=== PATIENT | male | born 1965 | race African-American/Black ===

== ENCOUNTER 2019-04-10 13:01 | Emergency (ER) | payer OTHER ==
[2019-04-10 13:22] VITALS: BP 140/88; PULSE 77; TEMP 98; BMI 24.3
--- NOTE | 2019-04-10 13:34 | PDOC ---
History of Present Illness - General Chief Complaint: Pain, Acute Stated Complaint: ABDOMINAL PAIN Time Seen by Provider: 04/10/19 13:28 History Source: Patient - History of Present Illness Timing/Duration: reports: changing over time Past History - Past Medical History Allergies/Adverse Reactions: Allergies Allergy/AdvReac Type Severity Reaction Status Date / Time No Known Allergies Allergy Verified 04/10/19 13:20 Home Medications: Ambulatory Orders Ondansetron HCl [Zofran] 4 mg PO Q8H #10 tablet 04/10/19 COPD: No Diabetes: Yes - Suicide/Smoking/Psychosocial Hx Smoking History: Never smoked Have you smoked in the past 12 months: No Information on smoking cessation initiated: No Hx Alcohol Use: No Drug/Substance Use Hx: No Review of Systems - Review of Systems Constitutional: No: Chills, Fever, Malaise, Weakness ABD/GI: Yes: Diarrhea, Nausea, Vomiting, Abdominal cramping. No: Blood Streaked Bowels, Constipated, Rectal Bleeding : No: Dysuria, Flank Pain, Hematuria *Physical Exam - Vital Signs Last Vital Signs Temp Pulse Resp BP Pulse Ox 98 F 77 18 140/88 100 04/10/19 13:20 04/10/19 13:20 04/10/19 13:20 04/10/19 13:20 04/10/19 13:20 - Physical Exam General Appearance: Yes: Appropriately Dressed. No: Apparent Distress HEENT: positive: Normal Voice Neck: positive: Supple Respiratory/Chest: negative: Respiratory Distress Gastrointestinal/Abdominal: positive: Soft. negative: Tender Integumentary: positive: Dry, Warm Neurologic: positive: Fully Oriented, Alert, Normal Mood/Affect Medical Decision Making - Medical Decision Making 04/10/19 13:29 53 yo M, h/o NIDDM, here w/ n/v/d. Pt reports intermittent non-bloody, non- bilious vomitus and about 1-2 episodes of non-bloody watery diarrhea 3 days. At some point had vague diffuse abdominal pain that has since resolved. No fever, chills, weakness or dizziness. States overall he feels that symptoms are improving. No sick contacts, recent travel, unusual food or antibiotic use See exam Possible viral gastroenteritis, no RF for serious dysentery, unlikely appy Stable and well hay w/ benign abd Given hx and exam, no w/u warranted at this time -dc w/ supportive tx -reason to return to ED d/w pt *DC/Admit/Observation/Transfer Diagnosis at time of Disposition: Nausea vomiting and diarrhea - Discharge Dispostion Disposition: HOME Condition at time of disposition: Good - Prescriptions Prescriptions: Ondansetron HCl [Zofran] 4 mg PO Q8H #10 tablet - Referrals - Patient Instructions Printed Discharge Instructions: DI for Viral Gastroenteritis -- Adult Additional Instructions: The most common cause of your symptoms is usally viral Please drink plenty of fluids and take anti-nausea medications as needed If symptoms return, please return to the ED - Post Discharge Activity Forms/Work/School Notes: Back to Work
--- NOTE | 2019-04-10 14:04 | PDOC ---
*Physical Exam - Vital Signs Last Vital Signs Temp Pulse Resp BP Pulse Ox 98 F 77 18 140/88 100 04/10/19 13:20 04/10/19 13:20 04/10/19 13:20 04/10/19 13:20 04/10/19 13:20 Medical Decision Making - Medical Decision Making 04/10/19 14:08 53 yo M, h/o NIDDM here w/ n/v/d. Symptoms present for the past 3 days No abdominal pain at this time No fever, chills, weakness or dizziness. Pt seen by Midlevel Provider under my direct supervision I agree with plan as outlined by Midlevel Provider 04/10/19 14:09 *DC/Admit/Observation/Transfer Diagnosis at time of Disposition: Nausea vomiting and diarrhea - Discharge Dispostion Disposition: HOME Condition at time of disposition: Good - Prescriptions Prescriptions: Ondansetron HCl [Zofran] 4 mg PO Q8H #10 tablet - Referrals - Patient Instructions Printed Discharge Instructions: DI for Viral Gastroenteritis -- Adult Additional Instructions: The most common cause of your symptoms is usally viral Please drink plenty of fluids and take anti-nausea medications as needed If symptoms return, please return to the ED - Post Discharge Activity Forms/Work/School Notes: Back to Work
[2019-04-11] MEDS ORDERED: MORPHINE SULFATE 2 MG/ML VIAL ONE (17:46)
[2019-04-12] MEDS ORDERED: INSULIN (NOVOLOG) ASPART 100 UNITS/ML 10ML VIAL ONE (01:06)
[2019-04-14] MEDS ORDERED: PROPOFOL 20 ML ONE ×2 (17:44)
== END 2019-04-10 13:56 | disposition home or self-care (01) ==
LOC: JER 13:01
DX: A08.4 Viral intestinal infection, unspecified (principal); B97.89 Other viral agents as the cause of diseases classified elsewhere
CPT/HCPCS: 99282-25

== ENCOUNTER 2019-04-11 13:27 | Inpatient (IN) | payer OTHER ==
--- NOTE | 2019-04-11 13:34 | PDOC ---
Rapid Medical Evaluation Chief Complaint: Pain Time Seen by Provider: 04/11/19 13:30 Medical Evaluation: Allergies Allergy/AdvReac Type Severity Reaction Status Date / Time No Known Allergies Allergy Verified 04/10/19 13:20 04/11/19 13:30 I have performed a brief in-person evaluation of this patient. The patient presents with a chief complaint of: RLQ/ Mid epigastric pain x 3 days, intermittant now persistant Pertinent physical exam findings: Tight with some guarding, I have ordered the following: Labs / The patient will proceed to the ED for further evaluation.
[2019-04-11 15:11] LABS: BASO % 0.3 % (0-2.0); EOS % 0.2 % (0-4.5); HEMATOCRIT 37.5 % (35.4-49); HEMOGLOBIN 12.8 GM/dL (11.7-16.9); LYMPH % 7.3 % (8-40); MCH 30.9 pg (25.7-33.7); MEAN CELL VOLUME 90.7 fl (80-96); MEAN PLT VOLUME 9.1 fl (7.5-11.1); MONO % 8.2 % (3.8-10.2); PLATELET COUNT 175 K/MM3 (134-434); RBC 4.13 M/mm3 (4.00-5.60); RDW 11.6 % (11.9-15.9); WHITE BLOOD COUNT 8.4 K/mm3 (4.0-10.0)
--- NOTE | 2019-04-11 15:25 | PDOC ---
History of Present Illness - General Chief Complaint: Pain, Acute Stated Complaint: ABD PAIN Time Seen by Provider: 04/11/19 13:30 - History of Present Illness Initial Comments: 04/11/19 15:37 Patient is a 53 year old male presented to the ED with the chief complaint of abdominal pain x 3 days. Patient came here in the ED yesterday for abdominal pain, nausea, vomiting, diarrhea, was diagnosed to have Viral gastroenteritis, was discharged home and now returns back to the ED for worsening Abdominal pain. It is located in the right lower quadrant, 9/10 in intensity, burning/ cramping in nature, non radiating. Since he returned home yesterday, pain has been getting worse, no vomiting or diarrhoea but still has nausea. Denies chest pain, sob, cough, palpitation, headache, loc, dizziness, numbness, tingling or any focal neurological deficits. Bladder habit normal. Sleep/Appetite normal prior to the illness. Past Medical history: DM (diagnosed a mth ago, diet controlled0 Allergies: NKDA Past Surgical history: None Social: Smoking-Denies Alcohol-Denies Drugs-Denies Family hx: Non contributory. Past History - Travel Traveled outside of the country in the last 30 days: Yes Close contact w/someone who was outside of country & ill: No - Past Medical History Allergies/Adverse Reactions: Allergies Allergy/AdvReac Type Severity Reaction Status Date / Time No Known Allergies Allergy Verified 04/10/19 13:20 Home Medications: Ambulatory Orders Ondansetron HCl [Zofran] 4 mg PO Q8H #10 tablet 04/10/19 COPD: No Diabetes: Yes - Immunization History Immunization Up to Date: No - Suicide/Smoking/Psychosocial Hx Smoking History: Never smoked Have you smoked in the past 12 months: No Information on smoking cessation initiated: No Hx Alcohol Use: No Drug/Substance Use Hx: No Review of Systems - Review of Systems Able to Perform ROS?: Yes Is the patient limited Romanian proficient: No *Physical Exam - Vital Signs Last Vital Signs Temp Pulse Resp BP Pulse Ox 98.5 F 79 16 135/86 100 04/11/19 13:31 04/11/19 13:31 04/11/19 13:31 04/11/19 13:31 04/11/19 13:31 - Physical Exam Comments: 04/11/19 15:47 General: Middle aged male, lying in bed, looks uncomfortably, awake, alert, oriented x 3. HEENT: EOM intact, no pallor or icterus. Chest : B/L lungs clear, no added sounds CVS: Regular rate and rhythm, S1, S2, no murmurs Abdomen: Distended, tender to palpation in the RLQ, Tympanic, hypoactive bowel sounds. Ext: No peripheral edema Neuro: Groosly normal. ED Treatment Course - LABORATORY CBC & Chemistry Diagram: 04/15/19 10:50 04/15/19 09:16 - ADDITIONAL ORDERS Additional order review: 04/11/19 14:55 RBC 4.13 MCV 90.7 MCHC 34.0 RDW 11.6 L MPV 9.1 Neutrophils % 84.0 H Lymphocytes % 7.3 L Monocytes % 8.2 Eosinophils % 0.2 Basophils % 0.3 Medical Decision Making - Medical Decision Making 04/11/19 15:48 Patient is a 53 year old male with PMHx of recently dx DM presents with RLQ abdominal pain. Will send CBC, CMP, UA. IV Morphine 2 mg. 04/11/19 15:57 Labs significant for SANTIAGO Creatinine 1.9 (baseline unknown), Lipase 827. Will give 1 L of NS Ultrasound of Abdomen to r/o gall stones. Abdomen/pelvis CT without contrast to r/o SBO. 04/11/19 Signed out to the night resident *DC/Admit/Observation/Transfer Diagnosis at time of Disposition: Abdominal pain in male, SANTIAGO (acute kidney injury), Hydronephrosis - Discharge Dispostion Condition at time of disposition: Stable - Referrals - Patient Instructions - Post Discharge Activity
[2019-04-11 15:39] LABS: ALBUMIN 3.7 g/dl (3.4-5.0); BILIRUBIN,TOTAL 1.4 mg/dL (0.2-1); BLOOD UREA NITROGEN 21.3 mg/dL (7-18); CALCIUM 9.3 mg/dL (8.5-10.1); CREATININE 1.9 mg/dL (0.55-1.3); POTASSIUM 4.6 mmol/L (3.5-5.1); TOT PROT 8.1 g/dl (6.4-8.2)
[2019-04-11] MEDS ORDERED: morphine CARPU-JECT 2 MG/1 ML DISP.SYRIN IVPUSH ONE (15:40)
[2019-04-11] MEDS ORDERED: SODIUM CHLORIDE 500 ML IV STA (15:41)
[2019-04-11] MEDS ORDERED: SODIUM CHLORIDE 1,000 ML IV STA (15:54)
--- NOTE | 2019-04-11 16:33 | PDOC ---
Documentation entered by Alysha Baer SCRIBE, acting as scribe for Kendall Arambula MD. Kendall Arambula MD: This documentation has been prepared by the jolantaibe, Alysha Baer SCRIBE, under my direction and personally reviewed by me in its entirety. I confirm that the documentation accurately reflects all work, treatment, procedures, and medical decision making performed by me. Attending Attestation - Resident Resident Name: LatashaLisa - ED Attending Attestation I have performed the following: I have examined & evaluated the patient, The case was reviewed & discussed with the resident, I agree w/resident's findings & plan, Exceptions are as noted - HPI HPI: 04/11/19 16:03 The patient is a 53-year-old male, with a past medical history of DM (diagnosed 1 month ago, diet-controlled), who presents to the ED with 3 days of abdominal pain. The patient was seen in the ED yesterday for the abdominal pain with associated nausea, vomiting, and diarrhea. He was diagnosed with viral gastroenteritis and discharged but returns today with worsening pain. Vomiting and diarrhea have resolved, but the patient is still nauseous. The patient denies fevers, chills, vomiting, or diarrhea. Denies any chest pain , palpitations or shortness of breath. Denies any weakness, dizziness, or changes in strength or sensation. Allergies: NKDA - Physicial Exam PE: 04/11/19 16:04 GENERAL: Awake, alert, and fully oriented, in no acute distress. HEAD: No signs of trauma EYES: PERRLA, EOMI, sclera anicteric, conjunctiva clear ENT: Auricles normal inspection, hearing grossly normal, nares patent, oropharynx clear without exudates. Moist mucosa NECK: Nontender, no stepoffs, Normal ROM, supple, no lymphadenopathy, JVD, or masses LUNGS: Breath sounds equal, clear to auscultation bilaterally. No wheezes, and no crackles HEART: Regular rate and rhythm, normal S1 and S2, no murmurs, rubs or gallops ABDOMEN: + mild distention, diffusely TTP, No guarding, no rebound. No masses EXTREMITIES: Normal range of motion, no edema. No clubbing or cyanosis. No cords, erythema, or tenderness NEUROLOGICAL: Cranial nerves II through XII intact. 5/5 strength and sensation in all extremities, Normal speech, normal cerebellar function SKIN: Warm, Dry, normal turgor, no rashes or lesions noted. - Medical Decision Making 04/11/19 16:27 53 M with abdominal pain. Labs today notable for elevated lipase as well as Tbili. Exam with distention. - CT to evaluate for obstruction vs ileus - RUQ US to r/o gallstones
--- NOTE | 2019-04-11 19:05 | PDOC ---
*Physical Exam - Vital Signs Last Vital Signs Temp Pulse Resp BP Pulse Ox 98.5 F 79 16 135/86 100 04/11/19 13:31 04/11/19 13:31 04/11/19 13:31 04/11/19 13:31 04/11/19 13:31 ED Treatment Course - LABORATORY CBC & Chemistry Diagram: 04/11/19 14:55 04/11/19 14:55 - ADDITIONAL ORDERS Additional order review: Laboratory Results 04/11/19 14:55 Sodium 129 L Potassium 4.6 Chloride 91 L Carbon Dioxide 31 Anion Gap 7 L BUN 21.3 H Creatinine 1.9 H Est GFR (CKD-EPI)AfAm 45.63 Est GFR (CKD-EPI)NonAf 39.37 Random Glucose 270 H Calcium 9.3 Total Bilirubin 1.4 H AST 15 ALT 18 Alkaline Phosphatase 87 Total Protein 8.1 Albumin 3.7 Lipase 827 H 04/11/19 14:55 RBC 4.13 MCV 90.7 MCHC 34.0 RDW 11.6 L MPV 9.1 Neutrophils % 84.0 H Lymphocytes % 7.3 L Monocytes % 8.2 Eosinophils % 0.2 Basophils % 0.3 - Medications Given in the ED: ED Medications Discontinued Medications Generic Name Dose Route Start Last Admin Trade Name Freq PRN Reason Stop Dose Admin Sodium Chloride 500 mls @ 500 mls/hr 04/11/19 15:41 04/11/19 16:36 Normal Saline - IV 04/11/19 16:40 Not Given ASDIR STA Sodium Chloride 1,000 mls @ 1,000 mls/hr 04/11/19 15:54 04/11/19 16:00 Normal Saline - IV 04/11/19 16:53 1,000 mls/hr ASDIR STA Administration Morphine Sulfate 2 mg 04/11/19 15:40 04/11/19 17:45 Morphine Injection - IVPUSH 04/11/19 15:41 2 mg ONCE ONE Administration Medical Decision Making - Medical Decision Making 04/11/19 19:05 Received sign out from resident Dr. Pagan. In short, pt is a 53 y/o male presenting for diffuse abdominal pain with nausea and vomiting since Tuesday. Newly diagnosed with DM, diet controlled. Was evaluated at this department yesterday and discharged. Returning today for worsening pain. Lipase mildly elevated. Cr suspect to be elevated, but no baseline available. Nonobstructing right hydronephrosis noted on CT and U/S. No radiographic evidence of pancreatitis. Abdominal exam performed. Diffuse tenderness without rebound, guarding, or grimace. Reportedly worse on the right side. Denies h/o of similar pain. Stated he did not want additional pain medication at this time. Endorses taking Vitamin D, B12, C, and unknown testosterone booster; all OTC and not prescribed by physician. Will admit pt for abdominal pain with SANTIAGO and R hydronephrosis without obvious cause in recently diagnosed diabetic. Ordered LF IVFB. In person consultation with resident Dr. Barr. Verbally appraised of the pt s HPI, ED course, and current plan of management. Will admit pt to med/surg for attending Dr. Mcnally. *DC/Admit/Observation/Transfer Diagnosis at time of Disposition: Abdominal pain in male, SANTIAGO (acute kidney injury) Hydronephrosis Qualifiers: Hydronephrosis type: unspecified Qualified Code(s): N13.30 - Unspecified hydronephrosis - Discharge Dispostion Condition at time of disposition: Stable Decision to Admit order: Yes - Referrals - Patient Instructions - Post Discharge Activity
[2019-04-11] MEDS ORDERED: LACTATED RINGERS SOLUTION 1000 ML INFUS.BAG IV ONE (19:38)
--- NOTE | 2019-04-11 20:24 | PN ---
Teaching Attending Note Name of Resident: Cortney Shaw ATTENDING PHYSICIAN STATEMENT I saw and evaluated the patient. I reviewed the resident's note and discussed the case with the resident. I agree with the resident's findings and plan as documented. SUBJECTIVE: Patient is a 53 year old man with a past medical history of NIDDM (diagnosed 1 month ago, diet-controlled), who presents to the ER with 3 days of abdominal pain. The patient was seen in the ER yesterday for the abdominal pain with associated nausea, vomiting, and diarrhea. He was diagnosed with viral gastroenteritis and discharged but returns today with worsening pain. Vomiting and diarrhea have resolved, but the patient is still nauseous. Admits to taking Vitamin D, B12, C, and an unknown testosterone booster - all OTC and not prescribed by a physician. He denies fevers, chills, vomiting, or diarrhea. Denies any chest pain, palpitations or shortness of breath. Denies any weakness, dizziness, or changes in strength or sensation. No sick contacts , recent travel, ingestion of unusual/street food or antibiotic use. OBJECTIVE: Alert Vital Signs Period Temp Pulse Resp BP Sys/Monsivais Pulse Ox Last 24 Hr 98.5 F 79 16 135/86 100 HEENT: No Jaundice, eye redness or discharge, PERRLA, EOMI. Normocephalic, atraumatic. External ears are normal and hearing is grossly intact. No nasal discharge. Neck: Supple, nontender. No palpable adenopathy or thyromegaly. No JVD Chest: Good effort. Clear to auscultation and percussion. Heart: Regular. No S3, rub or murmur Abdomen: Not distended, soft, RLQ tenderness and no HSM. No rebound or guarding. Normal bowel sounds. Ext: Peripheral pulses intact. No leg edema. Skin: Warm and dry. No petechiae, rash or ecchymosis. Neuro: Alert. Oriented x3. CN 2-12 grossly intact. Sensation grossly intact in all four extremities and DTR are symmetric. Psych: Appropriate mood and affect. Good insight. Home Medications Medication Instructions Recorded Ondansetron HCl [Zofran] 4 mg PO Q8H #10 tablet 04/10/19 Abnormal Lab Results 04/11/19 04/11/19 14:55 14:55 RDW 11.6 L Neutrophils % 84.0 H Lymphocytes % 7.3 L Sodium 129 L Chloride 91 L Anion Gap 7 L BUN 21.3 H Creatinine 1.9 H Random Glucose 270 H Total Bilirubin 1.4 H Lipase 827 H ASSESSMENT AND PLAN: 1. Kidney stone disease/?Pancreatitis - CT scan of abdomen and pelvis without contrast shows right moderate hydronephrosis, a non-obstructing kidney stone and nonvisualized appendix. No "pancreatic abnormality" is mentioned. Sonogram does not reveal any biliary system pathology and urinalysis is pending. Hyponatremia likely due to recent volume loss and/or SIADH from nausea. Will keep him NPO, treat with IV LR/IV protonix/IV zofran, trend LFTs and lipase, get urine toxicology, triglycerides, hepatitis serology and consult GI. Consult Urology. Monitor serum sodium q 6 hours. EKG is NSR with no significant ST-T wave changes. Needs outpatient workp to search for stone disease risk factor. Counseled to stop ingesting "a lot" of supplements, vitamins and alternative medicine products. 2. DM Will implement sliding scale insulin regimen and check HbA1c. Consult Endocrine - likely will need drug therapy for NIDDM. Provide comprehensive diabetes care with patient teaching and counseling about the importance of adherence to prescribed diabetes regimen, euglycemia, eye care and foot care. 3. SANTIAGO? - Etiology unclear. Cannot be attributed entirely to the right hydronephrosis. Needs nephrologic workup to rule out an underlying renal disease. Get CPK and urinalysis. Will consult nephrology and avoid nephrotoxic agents such as NSAIDS, aminoglycosides, contrast dyes and certain Alternative medicine products. 4. DVT prophylaxis - SCD. Will hold off on Lovenox 40 mg SQ q 24 hours in case he needs a urologic procedure. 5. Advance directives - Full code
--- NOTE | 2019-04-11 20:50 | HP ---
Admitting History and Physical - Admission Chief Complaint: Abdominal pain x 4 days History of Present Illness: Patient is a 53 year old male presented to the ED with the chief complaint of abdominal pain x 3 days. Patient presented to the ED yesterday for abdominal pain, nausea, vomiting, diarrhea, was diagnosed to have Viral gastroenteritis, was discharged home and now returns back to the ED for worsening Abdominal pain. The pain is located in the right lower quadrant, 9/10 in intensity, burning/cramping in nature, non radiating. Since he returned home yesterday, pain has been getting worse, no vomiting or diarrhea but still has nausea. Pt reports being celibate for past 5years since his divorce. Unsure of hepatitis status. Denies alcohol ingestion. Denies fevers. Pt reports poor appetite, with last meal being Tuesday night. Pt migrated to from [facility] in the s. No prior TB diagnosis. Denies chest pain, sob, cough, palpitation, headache, loc, dizziness, numbness, tingling or any focal neurological deficits. Bladder habit normal. Sleep/Appetite normal prior to the illness. 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 History Source: Patient, Medical Record Limitations to Obtaining History: No Limitations - Past Medical History Endocrine: Yes: Diabetes Mellitus - Smoking History Smoking history: Never smoked Have you smoked in the past 12 months: No - Alcohol/Substance Use Hx Alcohol Use: No Home Medications - Allergies Allergies/Adverse Reactions: Allergies Allergy/AdvReac Type Severity Reaction Status Date / Time No Known Allergies Allergy Verified 04/10/19 13:20 - Home Medications Home Medications: Ambulatory Orders Ondansetron HCl [Zofran] 4 mg PO Q8H #10 tablet 04/10/19 Review of Systems - Review of Systems Constitutional: reports: Loss of Appetite. denies: Chills, Fever, Night Sweats Eyes: denies: Blurred Vision HENT: reports: Nasal Congestion, Throat Pain. denies: Difficult Swallowing, Ear Pain Neck: denies: Stiffness Cardiovascular: denies: Chest Pain, Edema, Palpitations, Shortness of Breath Respiratory: reports: Exercise Intolerance. denies: Cough, Hemoptysis, SOB Gastrointestinal: reports: Abdominal Pain, Diarrhea. denies: Melena Genitourinary: denies: Burning, Dysuria, Flank Pain Musculoskeletal: denies: Back Pain Physical Examination Vital Signs: Vital Signs Temperature 98.5 F 04/11/19 13:31 Pulse Rate 79 04/11/19 13:31 Respiratory Rate 16 04/11/19 13:31 Blood Pressure 135/86 04/11/19 13:31 O2 Sat by Pulse Oximetry (%) 100 04/11/19 13:31 Constitutional: Yes: Mild Distress Eyes: Yes: Conjunctiva Clear, EOM Intact, PERRL. No: Sclera Icterus HENT: Yes: Atraumatic. No: Pharyngeal Erythema Neck: Yes: Supple Cardiovascular: Yes: S1, S2 Respiratory: Yes: CTA Bilaterally Gastrointestinal: Yes: Normal Bowel Sounds, Soft, Tenderness. No: Hematemesis, Palpable Mass, Rectal Bleeding ...Rectal Exam: Yes: Guaiac Negative, Hemorrhoids/External, Sphincter Tone Normal, Other (Gloved finger stained with greenish formed stool). No: Mass Renal/: No: CVA Tenderness - Left, CVA Tenderness - Right Musculoskeletal: No: Back Pain Edema: No Peripheral Pulses WNL: Yes Neurological: Yes: Alert, Oriented, Cran Nerves II-XII Intact. No: Confusion ...Motor Strength: WNL Psychiatric: Yes: Alert, Oriented Labs: CBC, BMP 04/11/19 14:55 04/11/19 14:55 Imaging - Results Cat Scan: Report Reviewed Assessment/Plan Current Medications Acetaminophen (Tylenol -) 650 mg PO Q6H PRN PRN Reason: Fever Or Pain Last Admin: 04/12/19 05:01 Dose: 650 mg Lactated Ringer's (Lactated Ringers Solution) 1,000 mls @ 125 mls/hr IV ASDIR NANCY Last Admin: 04/12/19 00:45 Dose: 125 mls/hr Metronidazole (Flagyl 500mg Premixed Ivpb -) 500 mg in 100 mls @ 100 mls/hr IVPB Q8H-IV NANCY Stop: 04/13/19 04:14 Last Admin: 04/12/19 05:42 Dose: 100 mls/hr Levofloxacin (Levaquin 750 Mg Premixed Ivpb -) 750 mg in 150 mls @ 100 mls/hr IVPB Q48H NANCY; Protocol Insulin Aspart (Novolog Vial Sliding Scale -) 1 vial SQ Q4H NANCY; Protocol Last Admin: 04/12/19 04:58 Dose: 2 unit Ambulatory Orders Ondansetron HCl [Zofran] 4 mg PO Q8H #10 tablet 04/10/19 Assessment/Plan: Patient is a 53 year old male DM hx (not on treatment) presented to the ED with the chief complaint of abdominal pain x 3 days, prior hx of diarrhea, poor PO ingestion found to have SANTIAGO Assessment: Abdominal Pain-Associated n/v with diarrhea prior, Reduced PO intake, when transferred to floor, pt found to be febrile and was started on Ertapenem SANTIAGO Hyponatremia DM with hyperglycemia- pt reported DM control with diet for 5 years, UA pending for ketones, normal anion gap Elevated bilirubin Elevated Lipase 827 R moderate hydronephrosis Non obstructing renal pole calculi Plan: UA LR Utox TG urol consult endocrine consult HgbA1c ISS, BGM LFT Hepatic panel Urol Ertapenem Sepsis work up Dbili Visit type - Emergency Visit Emergency Visit: Yes ED Registration Date: 04/11/19 Care time: The patient presented to the Emergency Department on the above date and was hospitalized for further evaluation of their emergent condition. - New Patient This patient is new to me today: Yes Date on this admission: 04/11/19 - Critical Care Critical Care patient: No
[2019-04-12] MEDS: LACTATED RINGERS SOLUTION 1,000 ML IV SCH ×3 (00:45→23:20)
[2019-04-12] MEDS: INSULIN SLIDING SCALE (NOVOLOG) 1 VIAL SQ SCH ×5 (01:00→21:19)
[2019-04-12 01:50] LABS: BILIRUBIN,DIRECT 0.3 mg/dL (0.0-0.2)
[2019-04-12 01:52] LABS: BILIRUBIN,DIRECT 0.3 mg/dL (0.0-0.2)
[2019-04-12] MEDS ORDERED: SODIUM CHLORIDE 500 ML IV STA (04:14)
[2019-04-12] MEDS: ACETAMINOPHEN 325 MG TABLET (FP) PO PRN ×2 (05:01→20:27)
[2019-04-12 07:46] LABS: BILIRUBIN,TOTAL 1.8 mg/dL (0.2-1); BLOOD UREA NITROGEN 22.6 mg/dL (7-18); CALCIUM 8.6 mg/dL (8.5-10.1); CREATININE 1.6 mg/dL (0.55-1.3); MAGNESIUM 2.3 mg/dL (1.8-2.4); PHOSPHOROUS 3.2 mg/dL (2.5-4.9); POTASSIUM 3.9 mmol/L (3.5-5.1); TOT PROT 6.5 g/dl (6.4-8.2)
[2019-04-12 07:52] LABS: BASO % 0.2 % (0-2.0); HEMATOCRIT 33.4 % (35.4-49); HEMOGLOBIN 11.3 GM/dL (11.7-16.9); LYMPH % 6.6 % (8-40); MCH 30.5 pg (25.7-33.7); MCHC 33.8 g/dl (32.0-35.9); MEAN CELL VOLUME 90.4 fl (80-96); MEAN PLT VOLUME 9.3 fl (7.5-11.1); MONO % 8.3 % (3.8-10.2); NEUT % 84.9 % (42.8-82.8); PLATELET COUNT 165 K/MM3 (134-434); RBC 3.69 M/mm3 (4.00-5.60); RDW 11.7 % (11.9-15.9); WHITE BLOOD COUNT 8.9 K/mm3 (4.0-10.0)
[2019-04-12 08:05] LABS: INR 1.17 (0.83-1.09); PROTHROMBIN TIME (PATIENT) 13.8 SEC (9.7-13.0)
[2019-04-12 08:08] LABS: ACTIVATED PTT 25.7 SECONDS (25.2-36.5)
[2019-04-12 08:16] LABS: EPI CELLS 1.1 /HPF (0-5/HPF); HYALINE CASTS 1 /lpf (0-8); PH,URINE 5.5 (5.0-8.0); URINE APPEARANCE CLEAR; URINE BACTERIA 8.5 /hpf (NEGATIVE); URINE BILIRUBIN NEGATIVE (NEGATIVE); URINE COLOR YELLOW; URINE GLUCOSE (UA) 3+ (NEGATIVE); URINE KETONE 2+ (NEGATIVE); URINE LEUK ESTERASE NEGATIVE (NEGATIVE); URINE NITRITE NEGATIVE (NEGATIVE); URINE PROTEIN 1+ (NEGATIVE); URINE RBC 4 /hpf (0-4); URINE UROBILINOGEN 0.2 mg/dL (0.2-1.0); URINE WBC 3 /hpf (0-5)
[2019-04-12 08:59] LABS: COCAINE, UR NEGATIVE ng/ml (CUTOFF=300); METHADONE, UR NEGATIVE ng/ml (CUTOFF=300); OPIATES, URI NEGATIVE ng/ml (CUTOFF=300); PHENCYCLIDINE,URINE NEGATIVE ng/ml (CUTOFF=25); URINE AMPHETAMINES NEGATIVE ng/ml (CUTOFF=500); URINE BARBITURATES NEGATIVE ng/ml (CUTOFF=200); URINE BENZODIAZEPINES NEGATIVE ng/ml (CUTOFF=200)
[2019-04-12] MEDS ORDERED: ACETAMINOPHEN 1000 MG/100 ML VIAL (NON FORMULARY) IVPB ONE (09:36)
[2019-04-12] MEDS ORDERED: oxyCODONE HCL 5 MG TABLET PO ONE (09:53)
--- NOTE | 2019-04-12 12:10 | PN ---
Physical Exam: SUBJECTIVE: Patient seen and examined at bedside. C/o abdominal pain. No n/v/d. OBJECTIVE: Vital Signs Period Temp Pulse Resp BP Sys/Monsivais Pulse Ox Last 24 Hr 98.2 F-100.6 F 74-97 16-20 110-135/63-90 100-100 GENERAL: A&Ox3, NAD HEENT: NC/AT, PERRLA, EOMI, MMM NECK: Trachea midline, full range of motion, supple. LUNGS: CTA b/l HEART: RRR no m/r/g ABDOMEN: soft, slight distention, reducible periumbilical hernia, tympanic, significant diffuse tenderness R>L EXTREMITIES: 2+ pulses, warm, well-perfused, no edema. NEUROLOGICAL: bee producer, motor, sensory systems w/o focal deficit PSYCH: Normal mood, normal affect. SKIN: Warm, dry, normal turgor, no rashes or lesions noted Laboratory Results - last 24 hr 04/11/19 04/11/19 04/11/19 14:55 14:55 21:56 WBC 8.4 RBC 4.13 Hgb 12.8 Hct 37.5 MCV 90.7 MCH 30.9 MCHC 34.0 RDW 11.6 L Plt Count 175 MPV 9.1 Absolute Neuts (auto) 7.1 Neutrophils % 84.0 H Lymphocytes % 7.3 L Monocytes % 8.2 Eosinophils % 0.2 Basophils % 0.3 Nucleated RBC % 0 PT with INR INR PTT (Actin FS) Sodium 129 L Potassium 4.6 Chloride 91 L Carbon Dioxide 31 Anion Gap 7 L BUN 21.3 H Creatinine 1.9 H Est GFR (CKD-EPI)AfAm 45.63 Est GFR (CKD-EPI)NonAf 39.37 POC Glucometer Random Glucose 270 H Calcium 9.3 Phosphorus Magnesium Total Bilirubin 1.4 H Direct Bilirubin 0.3 H AST 15 ALT 18 Alkaline Phosphatase 87 Total Protein 8.1 Albumin 3.7 Triglycerides Lipase 827 H Urine Color Urine Appearance Urine pH Ur Specific [place] Urine Protein Urine Glucose (UA) Urine Ketones Urine Blood Urine Nitrite Urine Bilirubin Urine Urobilinogen Ur Leukocyte Esterase Urine WBC (Auto) Urine RBC (Auto) Urine Casts (Auto) U Epithel Cells (Auto) Urine Bacteria (Auto) Stool Occult Blood Negative Opiates Screen Methadone Screen Barbiturate Screen Phencyclidine Screen Ur Amphetamines Screen MDMA (Ecstasy) Screen Benzodiazepines Screen Cocaine Screen U Marijuana (THC) Screen HIV 1&2 Antibody Screen HIV P24 Antigen 04/12/19 04/12/19 04/12/19 00:54 01:00 01:00 WBC RBC Hgb Hct MCV MCH MCHC RDW Plt Count MPV Absolute Neuts (auto) Neutrophils % Lymphocytes % Monocytes % Eosinophils % Basophils % Nucleated RBC % PT with INR INR PTT (Actin FS) Sodium Potassium Chloride Carbon Dioxide Anion Gap BUN Creatinine Est GFR (CKD-EPI)AfAm Est GFR (CKD-EPI)NonAf POC Glucometer 200 Random Glucose Calcium Phosphorus Magnesium Total Bilirubin Direct Bilirubin 0.3 H AST ALT Alkaline Phosphatase Total Protein Albumin Triglycerides 98 Lipase Urine Color Urine Appearance Urine pH Ur Specific [place] Urine Protein Urine Glucose (UA) Urine Ketones Urine Blood Urine Nitrite Urine Bilirubin Urine Urobilinogen Ur Leukocyte Esterase Urine WBC (Auto) Urine RBC (Auto) Urine Casts (Auto) U Epithel Cells (Auto) Urine Bacteria (Auto) Stool Occult Blood Opiates Screen Methadone Screen Barbiturate Screen Phencyclidine Screen Ur Amphetamines Screen MDMA (Ecstasy) Screen Benzodiazepines Screen Cocaine Screen U Marijuana (THC) Screen HIV 1&2 Antibody Screen Negative HIV P24 Antigen Negative 04/12/19 04/12/19 04/12/19 04:56 05:30 05:30 WBC RBC Hgb Hct MCV MCH MCHC RDW Plt Count MPV Absolute Neuts (auto) Neutrophils % Lymphocytes % Monocytes % Eosinophils % Basophils % Nucleated RBC % PT with INR INR PTT (Actin FS) Sodium Potassium Chloride Carbon Dioxide Anion Gap BUN Creatinine Est GFR (CKD-EPI)AfAm Est GFR (CKD-EPI)NonAf POC Glucometer 189 Random Glucose Calcium Phosphorus Magnesium Total Bilirubin Direct Bilirubin AST ALT Alkaline Phosphatase Total Protein Albumin Triglycerides Lipase Urine Color Yellow Urine Appearance Clear Urine pH 5.5 Ur Specific [place] 1.032 Urine Protein 1+ H Urine Glucose (UA) 3+ H Urine Ketones 2+ H Urine Blood Negative Urine Nitrite Negative Urine Bilirubin Negative Urine Urobilinogen 0.2 Ur Leukocyte Esterase Negative Urine WBC (Auto) 3 Urine RBC (Auto) 4 Urine Casts (Auto) 1 U Epithel Cells (Auto) 1.1 Urine Bacteria (Auto) 8.5 Stool Occult Blood Opiates Screen Negative Methadone Screen Negative Barbiturate Screen Negative Phencyclidine Screen Negative Ur Amphetamines Screen Negative MDMA (Ecstasy) Screen Negative Benzodiazepines Screen Negative Cocaine Screen Negative U Marijuana (THC) Screen Negative HIV 1&2 Antibody Screen HIV P24 Antigen 04/12/19 04/12/19 04/12/19 06:05 06:05 06:05 WBC 8.9 RBC 3.69 L Hgb 11.3 L Hct 33.4 L MCV 90.4 MCH 30.5 MCHC 33.8 RDW 11.7 L Plt Count 165 MPV 9.3 Absolute Neuts (auto) 7.6 Neutrophils % 84.9 H Lymphocytes % 6.6 L Monocytes % 8.3 Eosinophils % 0.0 D Basophils % 0.2 Nucleated RBC % 0 PT with INR 13.80 H INR 1.17 H PTT (Actin FS) 25.7 Sodium 133 L Potassium 3.9 Chloride 96 L Carbon Dioxide 29 Anion Gap 8 BUN 22.6 H Creatinine 1.6 H Est GFR (CKD-EPI)AfAm 56.17 Est GFR (CKD-EPI)NonAf 48.46 POC Glucometer Random Glucose 153 H Calcium 8.6 Phosphorus 3.2 Magnesium 2.3 Total Bilirubin 1.8 H Direct Bilirubin AST 11 L ALT 16 Alkaline Phosphatase 72 Total Protein 6.5 Albumin 3.0 L Triglycerides Lipase Urine Color Urine Appearance Urine pH Ur Specific [place] Urine Protein Urine Glucose (UA) Urine Ketones Urine Blood Urine Nitrite Urine Bilirubin Urine Urobilinogen Ur Leukocyte Esterase Urine WBC (Auto) Urine RBC (Auto) Urine Casts (Auto) U Epithel Cells (Auto) Urine Bacteria (Auto) Stool Occult Blood Opiates Screen Methadone Screen Barbiturate Screen Phencyclidine Screen Ur Amphetamines Screen MDMA (Ecstasy) Screen Benzodiazepines Screen Cocaine Screen U Marijuana (THC) Screen HIV 1&2 Antibody Screen HIV P24 Antigen 04/12/19 04/12/19 07:07 11:35 WBC RBC Hgb Hct MCV MCH MCHC RDW Plt Count MPV Absolute Neuts (auto) Neutrophils % Lymphocytes % Monocytes % Eosinophils % Basophils % Nucleated RBC % PT with INR INR PTT (Actin FS) Sodium Potassium Chloride Carbon Dioxide Anion Gap BUN Creatinine Est GFR (CKD-EPI)AfAm Est GFR (CKD-EPI)NonAf POC Glucometer 152 145 Random Glucose Calcium Phosphorus Magnesium Total Bilirubin Direct Bilirubin AST ALT Alkaline Phosphatase Total Protein Albumin Triglycerides Lipase Urine Color Urine Appearance Urine pH Ur Specific [place] Urine Protein Urine Glucose (UA) Urine Ketones Urine Blood Urine Nitrite Urine Bilirubin Urine Urobilinogen Ur Leukocyte Esterase Urine WBC (Auto) Urine RBC (Auto) Urine Casts (Auto) U Epithel Cells (Auto) Urine Bacteria (Auto) Stool Occult Blood Opiates Screen Methadone Screen Barbiturate Screen Phencyclidine Screen Ur Amphetamines Screen MDMA (Ecstasy) Screen Benzodiazepines Screen Cocaine Screen U Marijuana (THC) Screen HIV 1&2 Antibody Screen HIV P24 Antigen Active Medications Generic Name Dose Route Start Last Admin Trade Name Freq PRN Reason Stop Dose Admin Acetaminophen 650 mg 04/12/19 04:08 04/12/19 05:01 Tylenol - PO 650 mg Q6H PRN Administration Fever Or Pain Lactated Ringer's 1,000 mls @ 125 mls/hr 04/11/19 23:45 04/12/19 10:19 Lactated Ringers Solution IV 125 mls/hr ASDIR NANCY Administration Insulin Aspart 1 vial 04/12/19 16:30 Novolog Vial Sliding Scale - SQ ACHS NANCY Protocol ASSESSMENT/PLAN: 53 y/o M w/ PMHx recently diagnosed DM not on Tx, p/w abd pain x 3 days #r/o pancreatitis vs hepatobiliary pathology -significant pain/tenderness -lipase elevated but <3x ULN -CT/US did not detect hepatopancreaticobiliary pathology but visualized these structures poorly -T bilirubin 1.4-->1.8 -MRCP ordered -GI consulted -LR @ 125 -NPO pending GI -oxycodone PRN for pain -avoid hepatotoxic medications #SANTIAGO vs CKD -baseline unknown -Cr 1.9-->1.6 -Na 129-->133 -R hydronephrosis on CT a/p and US, no obstructive pathology appreciated -urology consulted -no signs of infection #DM -BGM, SSI -A1c pending #FEN -LR @ 125 -monitor and correct lytes -NPO pending GI #PPx -mechanical #code -full #dispo -med/surg Visit type - Emergency Visit Emergency Visit: No - New Patient This patient is new to me today: Yes Date on this admission: 04/12/19 - Critical Care Critical Care patient: No
--- NOTE | 2019-04-12 12:31 | EKG ---
Test Reason : Blood Pressure : / mmHG Vent. Rate : 081 BPM Atrial Rate : 081 BPM P-R Int : 166 ms QRS Dur : 084 ms QT Int : 354 ms P-R-T Axes : 077 048 027 degrees QTc Int : 411 ms NORMAL SINUS RHYTHM POSSIBLE LEFT ATRIAL ENLARGEMENT BORDERLINE ECG NO PREVIOUS ECGS AVAILABLE Confirmed by KRISTINA WILSON, JANETTE ([id number]) on 04/12/2019 12:31:29 PM Referred By: Confirmed By:JANETTE ACEVEDO MD
--- NOTE | 2019-04-12 12:59 | CON.GI ---
Consult Consult Specialty:: GI Referred by:: Hospitalist Service Reason for Consultation:: Elevated lipase and worsening hyperbilirubinemia - History of Present Illness Chief Complaint: Abdominal pain, vomiting on Tuesday and Tuesday History of Present Illness: 53M admitted through [facility] yesterday for evaluation of abdominal pain. He describes the pain as starting suddenly on Tuesday and became progressively more intense throughout the following days. When asked where the pain is located, He points towards the right paramedian aspect of his abdomen just inferior to the umbilucus He vomited once on tuesday and again on tuesday. He denies simliar episodes in the past. He states that he has been urinating and his last BM was on Tuesday. Pain persists. In the ER he underwent CT scan on admission (non contrast) revealed right sided hydronephrosis as well as right sided renal calculi. No obvious GI pathology was described. Abdominal US failed to reveal gallstones or dilated biliary tract. Lab work revealed leukocytosis, elevated Lipase of 800 and iolated mild elevation of bilirubin (predominantly indirect). He denies alcohol use, use of any prescription medications or use of OTC medications. He denies rectal bleeding, melena or vomiting of blood. He has never had an upper endoscopy or colonoscopy. 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 (year[place] 1989 History of Recent Travel: No Home Medications - Allergies Allergies/Adverse Reactions: Allergies Allergy/AdvReac Type Severity Reaction Status Date / Time No Known Allergies Allergy Verified 04/10/19 13:20 - Home Medications Home Medications: Ambulatory Orders Ondansetron HCl [Zofran] 4 mg PO Q8H #10 tablet 04/10/19 Family Disease History - Family Disease History Family Disease History: Other: Grandparent (Maternal GM w/ BCA), Father (Does not know him), Mother (Alive: Healthy), Brother (2, healthy), Sister (1, healthy ), Son (1, healthy) Other Family History: No family history of colorectal cancer, pancreatitis or other GI malignancy Review of Systems - Review of Systems Constitutional: reports: Loss of Appetite. denies: Chills, Unintentional Wgt. Loss Cardiovascular: denies: Chest Pain Respiratory: denies: Cough Gastrointestinal: reports: Abdominal Pain, Bloating, Vomiting. denies: Diarrhea , Rectal Bleeding, Vomiting Blood Physical Exam-GI Vital Signs: Vital Signs Temperature 98.7 F 04/12/19 10:00 Pulse Rate 82 04/12/19 10:00 Respiratory Rate 18 04/12/19 10:00 Blood Pressure 126/76 04/12/19 10:00 O2 Sat by Pulse Oximetry (%) 100 04/12/19 02:43 Constitutional: Yes: Calm Eyes: No: Sclera Icterus Cardiovascular: Yes: Regular Rate and Rhythm. No: Murmur Respiratory: Yes: CTA Bilaterally Gastrointestinal Inspection: Yes: Distention. No: Scars ...Auscultate: Yes: Other (Higher pitched bowel sounds) ...Palpate: Yes: Firm/Rigid, Tenderness (TTP right lower paramedian abdomen). No: Guarding, Tenderness, Rebound ...Percussion: Yes: Tympanitic ...Rectal Exam: Yes: Other (No external lesions, no masses, light brown stool, guaiac negative) Edema: No (No LE edema) Neurological: Yes: Alert Labs: CBC, BMP 04/12/19 06:05 04/12/19 06:05 INR, PTT INR 1.17 (0.83-1.09) H 04/12/19 06:05 Hepatic Panel Total Bilirubin 1.8 mg/dL (0.2-1) H 04/12/19 06:05 Direct Bilirubin 0.3 mg/dL (0.0-0.2) H 04/12/19 01:00 AST 11 U/L (15-37) L 04/12/19 06:05 ALT 16 U/L (13-61) 04/12/19 06:05 Alkaline Phosphatase 72 U/L (45-117) 04/12/19 06:05 Albumin 3.0 g/dl (3.4-5.0) L 04/12/19 06:05 Problem List - Problems (1) Abdominal pain in male Assessment/Plan: patient describes right sided abdominal pain with tendeness to palpation in the right mid to lower abdomen. He has right nephrolithiasis and right hydronephrosis. ? Urological process contributing to pain as well as renal insufficiency. There is an isolated mild elevation in bilirubin that is not clearly associated with his current issue. It seems to be predominantly indirect. I advised the patient's improvement intern to obtain prior records from his PMD to compare previous labs. ? if the patient has a history of gilbert's. MRCP has been ordered to further evaluate the biliary tract. Does not appear to be clear cut pancreatitis as well despite elevated Lipase (which is not 3 x ULN per this lab' s parameters). ? if alternate bowel process contributing to the elevated lipase or urological process itself with accompanying renal insufficiency leading to decreased clearance of lipase. On exam, his abdomen is also distended, firm and tympanitic with higher pitched bowel sounds.. Advise: NPO IV hydration Urology evaluation I ordered an FUA to assess for developing ileus or bowel obstruction. If evidence of developing bowel obstruction, advise NGT decompression and durgical evaluation Monitor LFTs MRCP ordered per primary team Code(s): R10.9 - UNSPECIFIED ABDOMINAL PAIN
--- NOTE | 2019-04-12 17:42 | PN ---
Teaching Attending Note Name of Resident: Ash Okeefe ATTENDING PHYSICIAN STATEMENT I saw and evaluated the patient. I reviewed the resident's note and discussed the case with the resident. I agree with the resident's findings and plan as documented. SUBJECTIVE: Patient is feeling well with no acute distress. OBJECTIVE: Vital Signs Temperature 99.0 F 04/12/19 14:00 Pulse Rate 86 04/12/19 14:00 Respiratory Rate 18 04/12/19 14:00 Blood Pressure 144/86 04/12/19 14:00 O2 Sat by Pulse Oximetry (%) 100 04/12/19 09:00 GENERAL: A&Ox3, NAD HEENT: NC/AT, PERRLA, EOMI, MMM NECK: Trachea midline, full range of motion, supple. LUNGS: CTA b/l HEART: RRR no m/r/g ABDOMEN: soft, slight distention, reducible periumbilical hernia, tympanic, significant diffuse tenderness R>L EXTREMITIES: 2+ pulses, warm, well-perfused, no edema. 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 SKIN: Warm, dry, normal turgor, no rashes or lesions noted CBCD WBC 8.9 K/mm3 (4.0-10.0) 04/12/19 06:05 RBC 3.69 M/mm3 (4.00-5.60) L 04/12/19 06:05 Hgb 11.3 GM/dL (11.7-16.9) L 04/12/19 06:05 Hct 33.4 % (35.4-49) L 04/12/19 06:05 MCV 90.4 fl (80-96) 04/12/19 06:05 MCHC 33.8 g/dl (32.0-35.9) 04/12/19 06:05 RDW 11.7 % (11.9-15.9) L 04/12/19 06:05 Plt Count 165 K/MM3 (134-434) 04/12/19 06:05 MPV 9.3 fl (7.5-11.1) 04/12/19 06:05 CMP Sodium 133 mmol/L (136-145) L 04/12/19 06:05 Potassium 3.9 mmol/L (3.5-5.1) 04/12/19 06:05 Chloride 96 mmol/L (98-107) L 04/12/19 06:05 Carbon Dioxide 29 mmol/L (21-32) 04/12/19 06:05 Anion Gap 8 MMOL/L (8-16) 04/12/19 06:05 BUN 22.6 mg/dL (7-18) H 04/12/19 06:05 Creatinine 1.6 mg/dL (0.55-1.3) H 04/12/19 06:05 Random Glucose 153 mg/dL (74-106) H 04/12/19 06:05 Calcium 8.6 mg/dL (8.5-10.1) 04/12/19 06:05 Total Bilirubin 1.8 mg/dL (0.2-1) H 04/12/19 06:05 AST 11 U/L (15-37) L 04/12/19 06:05 ALT 16 U/L (13-61) 04/12/19 06:05 Alkaline Phosphatase 72 U/L (45-117) 04/12/19 06:05 Total Protein 6.5 g/dl (6.4-8.2) 04/12/19 06:05 Albumin 3.0 g/dl (3.4-5.0) L 04/12/19 06:05 Current Medications Generic Name Dose Route Start Last Admin Trade Name Freq PRN Reason Stop Dose Admin Acetaminophen 650 mg 04/12/19 04:08 04/12/19 05:01 Tylenol - PO 650 mg Q6H PRN Administration Fever Or Pain Lactated Ringer's 1,000 mls @ 125 mls/hr 04/11/19 23:45 04/12/19 10:19 Lactated Ringers Solution IV 125 mls/hr ASDIR NANCY Administration Insulin Aspart 1 vial 04/12/19 16:30 Novolog Vial Sliding Scale - SQ ACHS NANCY Protocol Home Medications Medication Instructions Recorded Ondansetron HCl [Zofran] 4 mg PO Q8H #10 tablet 04/10/19 MRCP resu;t: Moderate right sided hydronephrosis with perinephric edema. Right lower renal pole stone seen. Findings are non specific, could be possible to obstructing stone. Obstructing ureteral or UVJ lesion or pyelonephritis. ASSESSMENT AND PLAN: 53 y/o M w/ PMHx recently diagnosed DM, presents with abd pain x 3 days #R sided hydronephrosis with perinephric hydronephrosis due to obstructing stone. nephro consult appreciated. #SANTIAGO due to obstructing stone with hydronephrosis ; Cr 1.9-->1.6 # Acute hyphnatremia: Na 129-->133 on ivf #DM on BGM, SSI, A1c pending DVT Px:mechanical #code full med/surg
[2019-04-12] MEDS ORDERED: INSULIN (NOVOLOG) ASPART 100 UNITS/ML 10ML VIAL ONE (17:48)
[2019-04-13 03:10] LABS: HEP.C VIRUS AB 0.2 s/co ratio (0.0-0.9)
[2019-04-13] MEDS: INSULIN SLIDING SCALE (NOVOLOG) 1 VIAL SQ SCH ×4 (06:27→21:36)
[2019-04-13] MEDS: LACTATED RINGERS SOLUTION 1,000 ML IV SCH ×2 (06:30→20:38)
[2019-04-13] MEDS ORDERED: INSULIN (NOVOLOG) ASPART 100 UNITS/ML 10ML VIAL ONE (06:45)
[2019-04-13 07:58] LABS: BASO % 0.1 % (0-2.0); HEMATOCRIT 33.5 % (35.4-49); HEMOGLOBIN 11.1 GM/dL (11.7-16.9); MCH 30.2 pg (25.7-33.7); MCHC 33.3 g/dl (32.0-35.9); MEAN CELL VOLUME 90.8 fl (80-96); MEAN PLT VOLUME 9.4 fl (7.5-11.1); MONO % 8.9 % (3.8-10.2); PLATELET COUNT 167 K/MM3 (134-434); RBC 3.68 M/mm3 (4.00-5.60); RDW 11.6 % (11.9-15.9); WHITE BLOOD COUNT 11.5 K/mm3 (4.0-10.0)
[2019-04-13 08:07] LABS: INR 1.25 (0.83-1.09); PROTHROMBIN TIME (PATIENT) 14.8 SEC (9.7-13.0)
[2019-04-13 08:10] LABS: ACTIVATED PTT 27.8 SECONDS (25.2-36.5)
[2019-04-13 09:00] LABS: ALBUMIN 2.8 g/dl (3.4-5.0); BILIRUBIN,DIRECT 0.5 mg/dL (0.0-0.2); BLOOD UREA NITROGEN 23.1 mg/dL (7-18); CALCIUM 8.4 mg/dL (8.5-10.1); CREATININE 1.4 mg/dL (0.55-1.3); MAGNESIUM 2.2 mg/dL (1.8-2.4); PHOSPHOROUS 3.1 mg/dL (2.5-4.9); POTASSIUM 4.1 mmol/L (3.5-5.1); TOT PROT 6.4 g/dl (6.4-8.2)
[2019-04-13] MEDS ORDERED: VANCOMYCIN 1,000 MG in DEXTROSE 5%-WATER - 250 ML IVPB SCH (09:30)
[2019-04-13] MEDS: ACETAMINOPHEN 325 MG TABLET (FP) PO PRN ×2 (09:47→20:39)
--- NOTE | 2019-04-13 10:00 | PN.GI ---
GI Progress Note Subjective: No abdominal pain, no vomiting MRCP: limited exam with ? of minimal stranding near head of pancreas. no obvious ductal dilatation. Radiologist questioned if this was secondary to adjacent process from the right kidney, which had perinephric stranding/edema. Hydronephrosis was again appreciated. AXR revealed ileus - Objective Vital Signs: Vital Signs Temperature 99.7 F H 04/13/19 06:00 Pulse Rate 86 04/13/19 06:00 Respiratory Rate 18 04/13/19 06:00 Blood Pressure 137/71 04/13/19 06:00 O2 Sat by Pulse Oximetry (%) 100 04/12/19 21:00 Constitutional: Calm Eyes: No: Sclera Icterus Cardiovascular: Yes: Regular Rate and Rhythm Respiratory: Yes: CTA Bilaterally Gastrointestinal Inspection: No: Distention ...Auscultate: Yes: Normoactive Bowel Sounds ...Palpate: Yes: Soft ...Percussion: No: Tympanitic Edema: No (No LE edema) Neurological: Yes: Alert, Oriented Labs: CBC, BMP 04/13/19 07:05 04/13/19 07:05 INR, PTT INR 1.25 (0.83-1.09) H 04/13/19 07:05 Hepatic Panel Total Bilirubin 2.0 mg/dL (0.2-1) H 04/13/19 07:05 Direct Bilirubin 0.5 mg/dL (0.0-0.2) H 04/13/19 07:05 AST 17 U/L (15-37) 04/13/19 07:05 ALT 20 U/L (13-61) 04/13/19 07:05 Alkaline Phosphatase 93 U/L (45-117) 04/13/19 07:05 Albumin 2.8 g/dl (3.4-5.0) L 04/13/19 07:05 Laboratory Tests 04/12/19 06:05 Lipase 157 Problem List - Problems (1) Abdominal pain in male Assessment/Plan: Suspect the rise in lipase reactive secondary to adjacent renal process Bilirubin mildly elevated. Appears to be predominantly indirect. Obtain prior records from PMD to assess for chronicity Needs urology evaluation Advance diet if no urological interventions planned Code(s): R10.9 - UNSPECIFIED ABDOMINAL PAIN
[2019-04-13] MEDS ORDERED: VANCOMYCIN 1 GRAM (PRE-DOCKED) 1,000 MG/250 ML BAG IVPB ONE ×2 (10:15→12:45)
--- NOTE | 2019-04-13 12:43 | PN ---
Physical Exam: SUBJECTIVE: Patient seen and examined at bedside. Febrile yesterday 103 yesterday. OBJECTIVE: Vital Signs Period Temp Pulse Resp BP Sys/Monsivais Pulse Ox Last 24 Hr 98.9 F-103.0 F 86-100 18-18 123-144/67-86 100 GENERAL: NAD resting in bed HEAD: Normal with no signs of trauma. EYES:EOMI Sclera Clear ENT: MMM NECK: Trachea midline, full range of motion, supple. LUNGS: CTAB HEART: RRR S1S2 ABDOMEN: N CVA tendernes appreciated. Soft, Mild tenderness abdomen. EXTREMITIES: No CCE PSYCH: Normal mood, normal affect. SKIN: Warm, dry, normal turgor, no rashes or lesions noted Laboratory Results - last 24 hr 04/12/19 04/12/19 04/12/19 01:00 06:05 17:32 WBC RBC Hgb Hct MCV MCH MCHC RDW Plt Count MPV Absolute Neuts (auto) Neutrophils % Lymphocytes % Monocytes % Eosinophils % Basophils % Nucleated RBC % Retic Count PT with INR INR PTT (Actin FS) Fibrinogen Sodium 133 L Potassium 3.9 Chloride 96 L Carbon Dioxide 29 Anion Gap 8 BUN 22.6 H Creatinine 1.6 H Est GFR (CKD-EPI)AfAm 56.17 Est GFR (CKD-EPI)NonAf 48.46 POC Glucometer 153 Random Glucose 153 H Hemoglobin A1c % Calcium 8.6 Phosphorus 3.2 Magnesium 2.3 Total Bilirubin 1.8 H Direct Bilirubin AST 11 L ALT 16 Alkaline Phosphatase 72 LD Total Total Protein 6.5 Albumin 3.0 L Lipase 157 Hepatitis A IgM Ab Negative Hep Bs Antigen Negative Hep B Core IgM Ab Negative Hepatitis C Antibody 0.2 04/12/19 04/13/19 04/13/19 21:18 06:00 06:26 WBC RBC Hgb Hct MCV MCH MCHC RDW Plt Count MPV Absolute Neuts (auto) Neutrophils % Lymphocytes % Monocytes % Eosinophils % Basophils % Nucleated RBC % Retic Count 1.06 PT with INR INR PTT (Actin FS) Fibrinogen Sodium Potassium Chloride Carbon Dioxide Anion Gap BUN Creatinine Est GFR (CKD-EPI)AfAm Est GFR (CKD-EPI)NonAf POC Glucometer 132 121 Random Glucose Hemoglobin A1c % Calcium Phosphorus Magnesium Total Bilirubin Direct Bilirubin AST ALT Alkaline Phosphatase LD Total Total Protein Albumin Lipase Hepatitis A IgM Ab Hep Bs Antigen Hep B Core IgM Ab Hepatitis C Antibody 0604/13/19 04/13/19 07:05 07:05 07:05 WBC 11.5 H RBC 3.68 L Hgb 11.1 L Hct 33.5 L MCV 90.8 MCH 30.2 MCHC 33.3 RDW 11.6 L Plt Count 167 MPV 9.4 Absolute Neuts (auto) 10.0 H Neutrophils % 87.0 H Lymphocytes % 4.0 L D Monocytes % 8.9 Eosinophils % 0.0 Basophils % 0.1 Nucleated RBC % 0 Retic Count PT with INR INR PTT (Actin FS) Fibrinogen Sodium 135 L Potassium 4.1 Chloride 98 Carbon Dioxide 27 Anion Gap 10 BUN 23.1 H Creatinine 1.4 H Est GFR (CKD-EPI)AfAm 66.01 Est GFR (CKD-EPI)NonAf 56.96 POC Glucometer Random Glucose 140 H Hemoglobin A1c % 8.4 H Calcium 8.4 L Phosphorus 3.1 Magnesium 2.2 Total Bilirubin 2.0 H Direct Bilirubin 0.5 H AST 17 ALT 20 Alkaline Phosphatase 93 LD Total 173 Total Protein 6.4 Albumin 2.8 L Lipase Hepatitis A IgM Ab Hep Bs Antigen Hep B Core IgM Ab Hepatitis C Antibody 04/13/19 04/13/19 04/13/19 07:05 07:05 11:33 WBC RBC Hgb Hct MCV MCH MCHC RDW Plt Count MPV Absolute Neuts (auto) Neutrophils % Lymphocytes % Monocytes % Eosinophils % Basophils % Nucleated RBC % Retic Count PT with INR 14.80 H INR 1.25 H PTT (Actin FS) 27.8 Fibrinogen > 500.0 H Sodium Potassium Chloride Carbon Dioxide Anion Gap BUN Creatinine Est GFR (CKD-EPI)AfAm Est GFR (CKD-EPI)NonAf POC Glucometer 145 Random Glucose Hemoglobin A1c % Calcium Phosphorus Magnesium Total Bilirubin Direct Bilirubin AST ALT Alkaline Phosphatase LD Total Total Protein Albumin Lipase Hepatitis A IgM Ab Hep Bs Antigen Hep B Core IgM Ab Hepatitis C Antibody Active Medications Generic Name Dose Route Start Last Admin Trade Name Freq PRN Reason Stop Dose Admin Acetaminophen 650 mg 04/12/19 04:08 04/13/19 09:47 Tylenol - PO 650 mg Q6H PRN Administration Fever Or Pain Lactated Ringer's 1,000 mls @ 125 mls/hr 04/11/19 23:45 04/13/19 06:30 Lactated Ringers Solution IV 125 mls/hr ASDIR NANCY Administration Metronidazole 500 mg in 100 mls @ 100 mls/hr 04/13/19 10:00 04/13/19 10:52 Flagyl 500mg Premixed Ivpb - IVPB 100 mls/hr Q8H-IV NANCY Administration Vancomycin HCl 1,000 mg/ 250 mls @ 200 mls/hr 04/13/19 09:30 Dextrose IVPB Q24H NANCY Protocol Vancomycin HCl 1,000 mg in 250 mls @ 200 mls/hr 04/13/19 12:45 Vancomycin (Pre-Docked) IVPB 04/13/19 13:59 Q24H ONE Protocol Insulin Aspart 1 vial 04/12/19 16:30 04/13/19 11:39 Novolog Vial Sliding Scale - SQ Not Given ACHS NANCY Protocol ASSESSMENT/PLAN: 53 y/o M w/ PMHx recently diagnosed DM not on Tx, p/w abd pain x 3 days #r/o pancreatitis vs hepatobiliary pathology -significant pain/tenderness -lipase elevated but <3x ULN -CTAP---> Exam limited." No pancreaticobiliary ductal dilation seen. Questionable minimal stranding adjacent to the pancreatic head. Correlate clinically for pancreatitis. This can also be tracing from the renal porcess. Moderate right-sided hydronephrosis with mild perinephric edema. Right lower renal pole stone seen. Findings are nonspecific and could be secondary to obstructing stone, obstructing ureteral or UVJ lesion or pyelonephritis. " -T bilirubin 1.4-->1.8 -MRCP ------> Moderate right sided hydronephrosis with perinephric edema. Right lower renal pole stone seen. Findings are nonspecific and could be secondary to obstructing stone, obstructing ureteral or UVJ lesion or pyelo. -GI on board. Process may be 2/2 Renal etiology. Await Urology Evaluation. -LR @ 125 -NPO pending Uro possible intervention -oxycodone PRN for pain -avoid hepatotoxic medications #SANTIAGO vs CKD -baseline unknown -Cr 1.9-->1.6 -Na 129-->133 -urology consulted #DM -BGM, SSI -A1c 8.4% #FEN -LR @ 125 -monitor and correct lytes -NPO pending Uro #PPx -mechanical #code -full #dispo -med/surg Visit type - Emergency Visit Emergency Visit: Yes ED Registration Date: 04/11/19 Care time: The patient presented to the Emergency Department on the above date and was hospitalized for further evaluation of their emergent condition. - New Patient This patient is new to me today: No - Critical Care Critical Care patient: No - Discharge Referral Referred to [facility] Med P.C.: No
[2019-04-13] MEDS ORDERED: oxyCODONE HCL 5 MG TABLET PO ONE (13:20)
--- NOTE | 2019-04-13 19:05 | PN ---
Progress Note (short form) - Note Progress Note: ID CONSULT DICTATED
--- NOTE | 2019-04-13 19:28 | PN ---
Teaching Attending Note Name of Resident: Femi Noland ATTENDING PHYSICIAN STATEMENT I saw and evaluated the patient. I reviewed the resident's note and discussed the case with the resident. I agree with the resident's findings and plan as documented. SUBJECTIVE: Patient's overnight fever noted. feels sweaty. OBJECTIVE: Vital Signs Temperature 98.6 F 04/13/19 18:00 Pulse Rate 84 04/13/19 18:00 Respiratory Rate 18 04/13/19 18:00 Blood Pressure 130/77 04/13/19 18:00 O2 Sat by Pulse Oximetry (%) 94 L 04/13/19 09:00 GENERAL: A&Ox3, NAD HEENT: NC/AT, PERRLA, EOMI, MMM NECK: Trachea midline, full range of motion, supple. LUNGS: CTA b/l HEART: RRR no m/r/g ABDOMEN: soft, mild distention with tenderness , reducible periumbilical hernia , EXTREMITIES: 2+ pulses, warm, well-perfused, no edema. 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 SKIN: Warm, dry, normal turgor, no rashes or lesions noted CBCD WBC 11.5 K/mm3 (4.0-10.0) H 04/13/19 07:05 RBC 3.68 M/mm3 (4.00-5.60) L 04/13/19 07:05 Hgb 11.1 GM/dL (11.7-16.9) L 04/13/19 07:05 Hct 33.5 % (35.4-49) L 04/13/19 07:05 MCV 90.8 fl (80-96) 04/13/19 07:05 MCHC 33.3 g/dl (32.0-35.9) 04/13/19 07:05 RDW 11.6 % (11.9-15.9) L 04/13/19 07:05 Plt Count 167 K/MM3 (134-434) 04/13/19 07:05 MPV 9.4 fl (7.5-11.1) 04/13/19 07:05 CMP Sodium 135 mmol/L (136-145) L 04/13/19 07:05 Potassium 4.1 mmol/L (3.5-5.1) 04/13/19 07:05 Chloride 98 mmol/L (98-107) 04/13/19 07:05 Carbon Dioxide 27 mmol/L (21-32) 04/13/19 07:05 Anion Gap 10 MMOL/L (8-16) 04/13/19 07:05 BUN 23.1 mg/dL (7-18) H 04/13/19 07:05 Creatinine 1.4 mg/dL (0.55-1.3) H 04/13/19 07:05 Random Glucose 140 mg/dL (74-106) H 04/13/19 07:05 Calcium 8.4 mg/dL (8.5-10.1) L 04/13/19 07:05 Total Bilirubin 2.0 mg/dL (0.2-1) H 04/13/19 07:05 AST 17 U/L (15-37) 04/13/19 07:05 ALT 20 U/L (13-61) 04/13/19 07:05 Alkaline Phosphatase 93 U/L (45-117) 04/13/19 07:05 Total Protein 6.4 g/dl (6.4-8.2) 04/13/19 07:05 Albumin 2.8 g/dl (3.4-5.0) L 04/13/19 07:05 Current Medications Generic Name Dose Route Start Last Admin Trade Name Freq PRN Reason Stop Dose Admin Acetaminophen 650 mg 04/12/19 04:08 04/13/19 09:47 Tylenol - PO 650 mg Q6H PRN Administration Fever Or Pain Lactated Ringer's 1,000 mls @ 125 mls/hr 04/11/19 23:45 04/13/19 06:30 Lactated Ringers Solution IV 125 mls/hr ASDIR NANCY Administration Metronidazole 500 mg in 100 mls @ 100 mls/hr 04/13/19 10:00 04/13/19 17:16 Flagyl 500mg Premixed Ivpb - IVPB 100 mls/hr Q8H-IV NANCY Administration Vancomycin HCl 1,000 mg in 250 mls @ 166.667 mls/hr 04/14/19 01:00 Vancomycin (Pre-Docked) IVPB Q12H NANCY Protocol Insulin Aspart 1 vial 04/12/19 16:30 04/13/19 16:25 Novolog Vial Sliding Scale - SQ 2 units ACHS NANCY Administration Protocol Home Medications Medication Instructions Recorded Ondansetron HCl [Zofran] 4 mg PO Q8H #10 tablet 04/10/19 Microbiology 04/12/19 04:50 Urine - Urine Clean Catch Urine Culture - Final Contaminated: Please Repeat 04/12/19 06:05 Blood - Peripheral Venous Blood Culture - Preliminary Staphylococcus Coagulase Neg 04/12/19 05:15 Blood - Peripheral Venous Blood Culture - Preliminary Staphylococcus Coagulase Neg MRCP result: Moderate right sided hydronephrosis with perinephric edema. Right lower renal pole stone seen. Findings are non specific, could be possible to obstructing stone. Obstructing ureteral or UVJ lesion or pyelonephritis. ASSESSMENT AND PLAN: 53 y/o M w/ PMHx recently diagnosed DM, presents with abd pain x 3 days #Right sided moderate hydronephrosis with perinephric hydronephrosis due to non- obstructing stone/ pylonephritis . nephro consult appreciated. on IV flagyl and levaquin. # Blood growing staph.coag neg x 2 ; will give a dose of vancomycin , will get ID involved #SANTIAGO due to non-obstructing stone with hydronephrosis ; Cr 1.9-->1.6-->1.4 # Acute hyponatremia: Na 129-->133-->135 on ivf #DM on BGM, SSI, A1c pending DVT Px:mechanical #code full med/surg echo pending, repeat blood cx
[2019-04-13 21:17] LABS: EPI CELLS 1.5 /HPF (0-5/HPF); HYALINE CASTS 1 /lpf (0-8); URINE APPEARANCE CLEAR; URINE BACTERIA 3.5 /hpf (NEGATIVE); URINE BILIRUBIN NEGATIVE (NEGATIVE); URINE COLOR YELLOW; URINE GLUCOSE (UA) 2+ (NEGATIVE); URINE KETONE 2+ (NEGATIVE); URINE LEUK ESTERASE 1+ (NEGATIVE); URINE NITRITE NEGATIVE (NEGATIVE); URINE PROTEIN 1+ (NEGATIVE); URINE RBC 8 /hpf (0-4); URINE WBC 9 /hpf (0-5)
[2019-04-14] MEDS: LACTATED RINGERS SOLUTION 1,000 ML IV SCH ×3 (01:53→19:20)
[2019-04-14] MEDS: VANCOMYCIN 1 GRAM (PRE-DOCKED) 1,000 MG/250 ML BAG IVPB SCH ×2 (01:53→15:46)
[2019-04-14] MEDS: ACETAMINOPHEN 325 MG TABLET (FP) PO PRN ×2 (05:38→11:18)
[2019-04-14] MEDS: INSULIN SLIDING SCALE (NOVOLOG) 1 VIAL SQ SCH ×4 (06:42→22:57)
--- NOTE | 2019-04-14 07:18 | CONS ---
DATE OF CONSULTATION: DATE OF DICTATION: 04/13/2019 HISTORY OF PRESENT ILLNESS: The patient is a 53-year-old male with history of diabetes mellitus evaluated for positive blood cultures. He was admitted to the hospital on April 11, 2019, with complaints of abdominal pain, nausea, vomiting, and diarrhea. Patient had reported right-sided abdominal pain radiating to the right groin. A CT scan of the abdomen and pelvis was performed and showed a right hydronephrosis. His course was complicated by temperature elevation. Cultures were obtained. He was empirically treated with Levaquin, Flagyl, and vancomycin. Blood cultures are now positive for gram-positive cocci in clusters in 1 bottle. At the present time, he is awake and alert. He does complain of right-sided abdominal pain with radiation to the right lower abdomen. He denies any dysuria or hematuria. PAST MEDICAL HISTORY: Positive for diabetes mellitus. ALLERGIES: No known allergies. MEDICATIONS: Presently include Tylenol, Flagyl, Levaquin, oxycodone, vancomycin. SOCIAL HISTORY: Patient lives in the community. He is a nonsmoker, nondrinker. SYSTEMS REVIEW: Neurologic: No loss of consciousness, seizure activity, or focal weakness. Cardiac: Negative for chest pain or palpitations. Respiratory: Negative for cough or sputum production. Gastrointestinal: As per HPI. Genitourinary: As per HPI. LABORATORY DATA: White count 11.5, hematocrit 33.5, platelet count 167. BUN 23, creatinine 1.4. Urinalysis shows 9 white cells. HIV test is negative. Urine culture contaminated. Blood culture gram-positive cocci in clusters in [address] scan of the abdomen and pelvis shows a right hydronephrosis, moderate, with no definite obstructing calculus, non-obstructing right renal lower pole calculus visualized. PHYSICAL EXAMINATION: General: He is awake and alert, supine in bed, in no acute distress. Vital signs: Temperature 99.2, maximum temperature 103, blood pressure 120/64, pulse 84 and regular, respirations 18 per minute. HEENT: Sclerae anicteric. Heart: Heart sounds S1, S2. Lungs: Clear. Abdomen: Right-sided abdominal tenderness, right upper and lower quadrant. No CVA tenderness. Extremities: Negative for edema. IMPRESSION: 1. Positive blood culture, rule out staphylococcus bacteremia, unclear source. 2. Right-sided abdominal pain with evidence of hydronephrosis, rule out renal colic. 3. Fever leukocytosis. Await culture results, continue empiric antibiotic coverage with Levaquin plus vancomycin, repeat blood cultures. Further recommendations pending culture results and clinical course, urology evaluation. Will follow. Thank you for the kind referral. MONI PATEL M.D. [id number]
[2019-04-14 09:10] LABS: HEMATOCRIT 33.6 % (35.4-49); HEMOGLOBIN 11.3 GM/dL (11.7-16.9); MCH 30.6 pg (25.7-33.7); MCHC 33.7 g/dl (32.0-35.9); MEAN CELL VOLUME 90.8 fl (80-96); MEAN PLT VOLUME 9.1 fl (7.5-11.1); PLATELET COUNT 187 K/MM3 (134-434); RDW 11.8 % (11.9-15.9)
[2019-04-14 09:33] LABS: BLOOD UREA NITROGEN 21.3 mg/dL (7-18); CALCIUM 8.2 mg/dL (8.5-10.1); CREATININE 1.4 mg/dL (0.55-1.3); MAGNESIUM 2.4 mg/dL (1.8-2.4); PHOSPHOROUS 2.4 mg/dL (2.5-4.9)
--- NOTE | 2019-04-14 10:32 | PN ---
Progress Note, Physician History of Present Illness: C/O R SIDED ABDOMINAL PAIN NO C/O DYSURIA/ HEMATURIA NO N/V/D NO F/C BC SCN 3/4 BOTTLES REPEAT BC PENDING - Current Medication List Current Medications: Active Medications Acetaminophen (Tylenol -) 650 mg PO Q6H PRN PRN Reason: Fever Or Pain Last Admin: 04/14/19 05:38 Dose: 650 mg Lactated Ringer's (Lactated Ringers Solution) 1,000 mls @ 125 mls/hr IV ASDIR NANCY Last Admin: 04/14/19 08:46 Dose: 125 mls/hr Vancomycin HCl (Vancomycin (Pre-Docked)) 1,000 mg in 250 mls @ 166.667 mls/hr IVPB Q12H NANCY; Protocol Last Admin: 04/14/19 01:53 Dose: 166.667 mls/hr Levofloxacin (Levaquin 500 Mg Premixed Ivpb -) 500 mg in 100 mls @ 100 mls/hr IVPB DAILY NANCY; Protocol Insulin Aspart (Novolog Vial Sliding Scale -) 1 vial SQ ACHS NANCY; Protocol Last Admin: 04/14/19 06:42 Dose: 2 units - Objective Vital Signs: Vital Signs Temperature 99.7 F H 04/14/19 06:00 Pulse Rate 88 04/14/19 06:00 Respiratory Rate 20 04/14/19 06:00 Blood Pressure 143/78 04/14/19 06:00 O2 Sat by Pulse Oximetry (%) 96 04/13/19 21:00 Constitutional: Yes: No Distress Eyes: Yes: Conjunctiva Clear Cardiovascular: Yes: Regular Rate and Rhythm, S1, S2 Respiratory: Yes: CTA Bilaterally Gastrointestinal: Yes: Normal Bowel Sounds, Soft, Tenderness, Other (MILD RUQ/ RLQ TENDERNESS TO PALP NO REBOUND/ RIGIDITY) Labs: CBC, BMP 04/14/19 08:53 04/14/19 08:53 INR, PTT INR 1.25 (0.83-1.09) H 04/13/19 07:05 Fibrinogen > 500.0 mg/dL (238-498) H 04/13/19 07:05 Assessment/Plan ? RENAL COLIC HYDRONEPHROSIS NEPHROLITHIASIS FEVER/ LEUKOCYTOSIS +BC SCN AWAIT C/S EVALUATION CONTINUE VANCOMYCIN/ LEVAQUIN
--- NOTE | 2019-04-14 14:33 | CON.GU ---
Consult - History of Present Illness History of Present Illness: 53 yo male admitted with right sided abdominal pain. No voiding complaints. CT with moderate rt hydro and 2 nonobstructing stones. 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 History of Recent Travel: No Home Medications - Allergies Allergies/Adverse Reactions: Allergies Allergy/AdvReac Type Severity Reaction Status Date / Time No Known Allergies Allergy Verified 04/10/19 13:20 - Home Medications Home Medications: Ambulatory Orders Ondansetron HCl [Zofran] 4 mg PO Q8H #10 tablet 04/10/19 Family Disease History - Family Disease History Family Disease History: Other: Grandparent (Maternal GM w/ BCA), Father (Does not know him), Mother (Alive: Healthy), Brother (2, healthy), Sister (1, healthy ), Son (1, healthy) Other Family History: No family history of colorectal cancer, pancreatitis or other GI malignancy Review of Systems - Review of Systems Gastrointestinal: reports: Abdominal Pain Genitourinary: reports: No Symptoms Physical Exam- Vital Signs: Vital Signs Temperature 99 F 04/14/19 14:23 Pulse Rate 80 04/14/19 14:23 Respiratory Rate 20 04/14/19 14:23 Blood Pressure 130/83 04/14/19 14:23 O2 Sat by Pulse Oximetry (%) 96 04/13/19 21:00 Gastrointestinal: Yes: Soft Kidneys: Yes: WNL Labs: CBC, BMP 04/14/19 08:53 04/14/19 08:53 Imaging - Results Cat Scan: Image Reviewed Problem List - Problems (1) Hydronephrosis Assessment/Plan: in light of rising WBC and no other potential source for infection, will plan for cysto/rt ureteral stent placement today Code(s): N13.30 - UNSPECIFIED HYDRONEPHROSIS Qualifiers: Hydronephrosis type: unspecified Qualified Code(s): N13.30 - Unspecified hydronephrosis
--- NOTE | 2019-04-14 15:43 | PN ---
Progress Note (short form) - Note Progress Note: Patient is felling better but continues to have pain. Vital Signs Temperature 99 F 04/14/19 14:23 Pulse Rate 80 04/14/19 14:23 Respiratory Rate 20 04/14/19 14:23 Blood Pressure 130/83 04/14/19 14:23 O2 Sat by Pulse Oximetry (%) 96 04/13/19 21:00 GENERAL: A&Ox3, NAD HEENT: NC/AT, PERRLA, EOMI, MMM NECK: Trachea midline, full range of motion, supple. LUNGS: CTA b/l, HEART: RRR no m/r/g ABDOMEN: soft, mild distention with tenderness , reducible periumbilical hernia , EXTREMITIES: 2+ pulses, warm, well-perfused, no edema. 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 SKIN: Warm, dry, normal turgor, no rashes or lesions noted CBCD WBC 12.0 K/mm3 (4.0-10.0) H 04/14/19 08:53 RBC 3.70 M/mm3 (4.00-5.60) L 04/14/19 08:53 Hgb 11.3 GM/dL (11.7-16.9) L 04/14/19 08:53 Hct 33.6 % (35.4-49) L 04/14/19 08:53 MCV 90.8 fl (80-96) 04/14/19 08:53 MCHC 33.7 g/dl (32.0-35.9) 04/14/19 08:53 RDW 11.8 % (11.9-15.9) L 04/14/19 08:53 Plt Count 187 K/MM3 (134-434) 04/14/19 08:53 MPV 9.1 fl (7.5-11.1) 04/14/19 08:53 CMP Sodium 135 mmol/L (136-145) L 04/14/19 08:53 Potassium 4.0 mmol/L (3.5-5.1) 04/14/19 08:53 Chloride 99 mmol/L (98-107) 04/14/19 08:53 Carbon Dioxide 28 mmol/L (21-32) 04/14/19 08:53 Anion Gap 8 MMOL/L (8-16) 04/14/19 08:53 BUN 21.3 mg/dL (7-18) H 04/14/19 08:53 Creatinine 1.4 mg/dL (0.55-1.3) H 04/14/19 08:53 Random Glucose 150 mg/dL (74-106) H 04/14/19 08:53 Calcium 8.2 mg/dL (8.5-10.1) L 04/14/19 08:53 Total Bilirubin 2.0 mg/dL (0.2-1) H 04/13/19 07:05 AST 17 U/L (15-37) 04/13/19 07:05 ALT 20 U/L (13-61) 04/13/19 07:05 Alkaline Phosphatase 93 U/L (45-117) 04/13/19 07:05 Total Protein 6.4 g/dl (6.4-8.2) 04/13/19 07:05 Albumin 2.8 g/dl (3.4-5.0) L 04/13/19 07:05 Current Medications Generic Name Dose Route Start Last Admin Trade Name Freq PRN Reason Stop Dose Admin Acetaminophen 650 mg 04/12/19 04:08 04/14/19 11:18 Tylenol - PO 650 mg Q6H PRN Administration Fever Or Pain Lactated Ringer's 1,000 mls @ 125 mls/hr 04/11/19 23:45 04/14/19 08:46 Lactated Ringers Solution IV 125 mls/hr ASDIR NANCY Administration Vancomycin HCl 1,000 mg in 250 mls @ 166.667 mls/hr 04/14/19 01:00 04/14/19 01:53 Vancomycin (Pre-Docked) IVPB 166.667 mls/hr Q12H NANCY Administration Protocol Levofloxacin 500 mg in 100 mls @ 100 mls/hr 04/14/19 10:00 04/14/19 11:19 Levaquin 500 Mg Premixed Ivpb - IVPB 100 mls/hr DAILY NANCY Administration Protocol Insulin Aspart 1 vial 04/12/19 16:30 04/14/19 14:13 Novolog Vial Sliding Scale - SQ Not Given ACHS NANCY Protocol Home Medications Medication Instructions Recorded Ondansetron HCl [Zofran] 4 mg PO Q8H #10 tablet 04/10/19 Microbiology 04/12/19 04:50 Urine - Urine Clean Catch Urine Culture - Final Contaminated: Please Repeat 04/12/19 06:05 Blood - Peripheral Venous Blood Culture - Preliminary Staphylococcus Coagulase Neg 04/12/19 05:15 Blood - Peripheral Venous Blood Culture - Preliminary Staphylococcus Coagulase Neg MRCP result: Moderate right sided hydronephrosis with perinephric edema. Right lower renal pole stone seen. Findings are non specific, could be possible to obstructing stone. Obstructing ureteral or UVJ lesion or pyelonephritis. ASSESSMENT AND PLAN: 53 y/o M w/ PMHx recently diagnosed DM, presents with abd pain x 3 days #Right sided moderate hydronephrosis with perinephric hydronephrosis due to non- obstructing stone/ pylonephritis . nephro consult appreciated. on IV flagyl and levaquin.Dr. Law will take the patient to OR for stent placement. # Blood growing staph.coag neg x 2 ; On IV vancomycin , ID consult appreciated. #SANTIAGO due to non-obstructing stone with hydronephrosis ; Cr 1.9-->1.6-->1.4 # Acute hyponatremia: Na 129-->133-->135 on ivf #DM on BGM, SSI, A1c pending DVT Px:mechanical #code full, med/surg echo pending, repeat blood cx Visit type - Emergency Visit Emergency Visit: Yes ED Registration Date: 04/11/19 Care time: The patient presented to the Emergency Department on the above date and was hospitalized for further evaluation of their emergent condition. - New Patient This patient is new to me today: No - Critical Care Critical Care patient: No - Discharge Referral Referred to [facility] Med P.C.: No
[2019-04-14] MEDS ORDERED: ONDANSETRON 4 MG/2 ML VIAL IVPUSH PRN ×2 (17:41→18:21)
[2019-04-14] MEDS ORDERED: ACETAMINOPHEN 1000 MG/100 ML VIAL (NON FORMULARY) IVPB ONE (17:42)
[2019-04-14] MEDS ORDERED: LACTATED RINGERS SOLUTION 1,000 ML IV SCH (17:45)
[2019-04-14] MEDS ORDERED: ACETAMINOPHEN 325 MG TABLET (FP) PO PRN (18:21)
--- NOTE | 2019-04-14 18:25 | OP ---
Operative Note - Note: Operative Date: 04/14/19 Pre-Operative Diagnosis: rt hydro Operation: cysto/retrograde/rt ureteral stent Findings: rt hydro Post-Operative Diagnosis: Same as Pre-op Surgeon: aJy Tang Anesthesia: General Drains & Tubes with Location: 7fr, 24cm stent Operative Report Dictated: Yes
[2019-04-14] MEDS ORDERED: ACETAMINOPHEN INJECTION 100 ML IVPB ONE (19:16)
[2019-04-15] MEDS: VANCOMYCIN 1 GRAM (PRE-DOCKED) 1,000 MG/250 ML BAG IVPB SCH ×2 (01:20→15:25)
[2019-04-15] MEDS: INSULIN SLIDING SCALE (NOVOLOG) 1 VIAL SQ SCH ×4 (06:49→21:58)
[2019-04-15 09:51] LABS: BLOOD UREA NITROGEN 20.3 mg/dL (7-18); CALCIUM 8.5 mg/dL (8.5-10.1); MAGNESIUM 2.2 mg/dL (1.8-2.4); PHOSPHOROUS 3.8 mg/dL (2.5-4.9); POTASSIUM 4.9 mmol/L (3.5-5.1)
[2019-04-15 11:06] LABS: BASO % 0.2 % (0-2.0); HEMATOCRIT 37.3 % (35.4-49); HEMOGLOBIN 12.3 GM/dL (11.7-16.9); LYMPH % 3.3 % (8-40); MCH 30.1 pg (25.7-33.7); MCHC 32.8 g/dl (32.0-35.9); MEAN CELL VOLUME 91.6 fl (80-96); MEAN PLT VOLUME 9.9 fl (7.5-11.1); MONO % 10.5 % (3.8-10.2); PLATELET COUNT 249 K/MM3 (134-434); RBC 4.08 M/mm3 (4.00-5.60); RDW 11.9 % (11.9-15.9); WHITE BLOOD COUNT 13.3 K/mm3 (4.0-10.0)
--- NOTE | 2019-04-15 12:04 | PN ---
Progress Note, Physician Chief Complaint: POD1 s/p cysto with stent for hydronephrosis - Current Medication List Current Medications: Active Medications Acetaminophen (Tylenol -) 650 mg PO Q6H PRN PRN Reason: Fever Lactated Ringer's (Lactated Ringers Solution) 1,000 mls @ 125 mls/hr IV ASDIR NANCY Last Admin: 04/14/19 19:20 Dose: 50 mls Levofloxacin (Levaquin 500 Mg Premixed Ivpb -) 500 mg in 100 mls @ 100 mls/hr IVPB DAILY [facility]; Protocol Vancomycin HCl (Vancomycin (Pre-Docked)) 1,000 mg in 250 mls @ 166.667 mls/hr IVPB Q12H NANCY; Protocol Last Admin: 04/15/19 01:20 Dose: 166.667 mls/hr Insulin Aspart (Novolog Vial Sliding Scale -) 1 vial SQ ACHS [facility]; Protocol Last Admin: 04/15/19 06:49 Dose: 4 units Ondansetron HCl (Zofran Injection) 4 mg IVPUSH Q6H PRN PRN Reason: NAUSEA AND/OR VOMITING - Objective Vital Signs: Vital Signs Temperature 98.6 F 04/15/19 06:00 Pulse Rate 73 04/15/19 06:00 Respiratory Rate 18 04/15/19 06:00 Blood Pressure 141/83 04/15/19 06:00 O2 Sat by Pulse Oximetry (%) 100 04/14/19 21:00 Labs: CBC, BMP 04/15/19 10:50 04/15/19 09:16 INR, PTT INR 1.25 (0.83-1.09) H 04/13/19 07:05 Fibrinogen > 500.0 mg/dL (238-498) H 04/13/19 07:05 Assessment/Plan Pt is s/p GA for cysto/stent placement. Doing well after anesthesia; VSS, no N/ V, minimal pain. Continue current management
[2019-04-15] MEDS: LACTATED RINGERS SOLUTION 1,000 ML IV SCH ×2 (12:17→18:47)
--- NOTE | 2019-04-15 14:29 | PN ---
Physical Exam: SUBJECTIVE: Patient seen and examined at bedside. No events overnight. No new complaints. OBJECTIVE: Vital Signs Period Temp Pulse Resp BP Sys/Monsivais Pulse Ox Last 24 Hr 97.6 F-1015 F 71-91 16-20 124-157/68-85 97-100 GENERAL: The patient is awake, alert, and fully oriented, in no acute distress. NECK: Trachea midline, full range of motion, supple. LUNGS: Breath sounds equal, clear to auscultation bilaterally, no wheezes, no crackles, no accessory muscle use. HEART: Regular rate and rhythm, S1, S2 without murmur, rub or gallop. ABDOMEN: Soft, nontender, nondistended, normoactive bowel sounds, no guarding, no rebound, no hepatosplenomegaly, no masses. EXTREMITIES: 2+ pulses, warm, well-perfused, no edema. NEUROLOGICAL: Cranial nerves II through X grossly intact. Normal speech, gait not observed. PSYCH: Normal mood, normal affect. SKIN: Warm, dry, normal turgor, no rashes or lesions noted Laboratory Results - last 24 hr 04/14/19 04/15/19 04/15/19 21:17 06:28 09:16 WBC RBC Hgb Hct MCV MCH MCHC RDW Plt Count MPV Absolute Neuts (auto) Neutrophils % Lymphocytes % Monocytes % Eosinophils % Basophils % Nucleated RBC % Sodium 136 Potassium 4.9 Chloride 102 Carbon Dioxide 25 Anion Gap 10 BUN 20.3 H Creatinine 1.0 Est GFR (CKD-EPI)AfAm 99.15 Est GFR (CKD-EPI)NonAf 85.55 POC Glucometer 181 244 Random Glucose 242 H Calcium 8.5 Phosphorus 3.8 Magnesium 2.2 04/15/19 04/15/19 10:50 11:36 WBC 13.3 H RBC 4.08 Hgb 12.3 Hct 37.3 MCV 91.6 MCH 30.1 MCHC 32.8 RDW 11.9 Plt Count 249 D MPV 9.9 Absolute Neuts (auto) 11.4 H Neutrophils % 86.0 H Lymphocytes % 3.3 L Monocytes % 10.5 H Eosinophils % 0.0 Basophils % 0.2 Nucleated RBC % 0 Sodium Potassium Chloride Carbon Dioxide Anion Gap BUN Creatinine Est GFR (CKD-EPI)AfAm Est GFR (CKD-EPI)NonAf POC Glucometer 236 Random Glucose Calcium Phosphorus Magnesium Active Medications Generic Name Dose Route Start Last Admin Trade Name Freq PRN Reason Stop Dose Admin Acetaminophen 650 mg 04/14/19 18:21 Tylenol - PO Q6H PRN Fever Lactated Ringer's 1,000 mls @ 125 mls/hr 04/14/19 18:21 04/15/19 12:17 Lactated Ringers Solution IV 125 mls/hr ASDIR NANCY Administration Levofloxacin 500 mg in 100 mls @ 100 mls/hr 04/15/19 10:00 04/15/19 12:15 Levaquin 500 Mg Premixed Ivpb - IVPB 100 mls/hr DAILY NANCY Administration Protocol Vancomycin HCl 1,000 mg in 250 mls @ 166.667 mls/hr 04/15/19 01:00 04/15/19 01:20 Vancomycin (Pre-Docked) IVPB 166.667 mls/hr Q12H NANCY Administration Protocol Insulin Aspart 1 vial 04/14/19 22:00 04/15/19 12:16 Novolog Vial Sliding Scale - SQ 4 units ACHS NANCY Administration Protocol Ondansetron HCl 4 mg 04/14/19 18:21 Zofran Injection IVPUSH Q6H PRN NAUSEA AND/OR VOMITING ASSESSMENT/PLAN: 53 y/o M w/ PMHx recently diagnosed DM not on Tx, p/w abd pain x 3 days #abdominal pain 2/2 nephrolithiasis -significant pain/tenderness -lipase elevated but <3x ULN -s/p stent placement 04/14 -T bilirubin 1.4-->1.8 -LR @ 125 -oxycodone PRN for pain -avoid hepatotoxic medications -bcx growing organism; will await final c/s and document clearance #SANTIAGO vs CKD -baseline unknown -Cr 1.9-->1.6 -Na 129-->133 -urology consulted #DM -BGM, SSI -A1c 8.4% #FEN -LR @ 125 -monitor and correct lytes -NPO pending Uro #PPx -mechanical #code -full #dispo -med/surg Visit type - Emergency Visit Emergency Visit: Yes ED Registration Date: 04/11/19 Care time: The patient presented to the Emergency Department on the above date and was hospitalized for further evaluation of their emergent condition. - New Patient This patient is new to me today: Yes Date on this admission: 04/15/19 - Critical Care Critical Care patient: No - Discharge Referral Referred to [facility] No
--- NOTE | 2019-04-15 19:41 | PN ---
Teaching Attending Note Name of Resident: Javan Weber ATTENDING PHYSICIAN STATEMENT I saw and evaluated the patient. I reviewed the resident's note and discussed the case with the resident. I agree with the resident's findings and plan as documented. SUBJECTIVE: Patient is better today, no fever or chills. OBJECTIVE: Vital Signs Temperature 98.0 F 04/15/19 18:00 Pulse Rate 79 04/15/19 18:00 Respiratory Rate 20 04/15/19 18:00 Blood Pressure 149/88 04/15/19 18:00 O2 Sat by Pulse Oximetry (%) 100 04/15/19 09:00 GENERAL: A&Ox3, NAD HEENT: NC/AT, PERRLA, EOMI, MMM NECK: Trachea midline, full range of motion, supple. LUNGS: CTA b/l, HEART: RRR no m/r/g ABDOMEN: soft, mild distention with tenderness , reducible periumbilical hernia , EXTREMITIES: 2+ pulses, warm, well-perfused, no edema. 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 SKIN: Warm, dry, normal turgor, no rashes or lesions noted CBCD WBC 13.3 K/mm3 (4.0-10.0) H 04/15/19 10:50 RBC 4.08 M/mm3 (4.00-5.60) 04/15/19 10:50 Hgb 12.3 GM/dL (11.7-16.9) 04/15/19 10:50 Hct 37.3 % (35.4-49) 04/15/19 10:50 MCV 91.6 fl (80-96) 04/15/19 10:50 MCHC 32.8 g/dl (32.0-35.9) 04/15/19 10:50 RDW 11.9 % (11.9-15.9) 04/15/19 10:50 Plt Count 249 K/MM3 (134-434) D 04/15/19 10:50 MPV 9.9 fl (7.5-11.1) 04/15/19 10:50 CMP Sodium 136 mmol/L (136-145) 04/15/19 09:16 Potassium 4.9 mmol/L (3.5-5.1) 04/15/19 09:16 Chloride 102 mmol/L (98-107) 04/15/19 09:16 Carbon Dioxide 25 mmol/L (21-32) 04/15/19 09:16 Anion Gap 10 MMOL/L (8-16) 04/15/19 09:16 BUN 20.3 mg/dL (7-18) H 04/15/19 09:16 Creatinine 1.0 mg/dL (0.55-1.3) 04/15/19 09:16 Random Glucose 242 mg/dL (74-106) H 04/15/19 09:16 Calcium 8.5 mg/dL (8.5-10.1) 04/15/19 09:16 Total Bilirubin 2.0 mg/dL (0.2-1) H 04/13/19 07:05 AST 17 U/L (15-37) 04/13/19 07:05 ALT 20 U/L (13-61) 04/13/19 07:05 Alkaline Phosphatase 93 U/L (45-117) 04/13/19 07:05 Total Protein 6.4 g/dl (6.4-8.2) 04/13/19 07:05 Albumin 2.8 g/dl (3.4-5.0) L 04/13/19 07:05 Current Medications Generic Name Dose Route Start Last Admin Trade Name Freq PRN Reason Stop Dose Admin Acetaminophen 650 mg 04/14/19 18:21 Tylenol - PO Q6H PRN Fever Lactated Ringer's 1,000 mls @ 125 mls/hr 04/14/19 18:21 04/15/19 18:47 Lactated Ringers Solution IV Not Given ASDIR NANCY Levofloxacin 500 mg in 100 mls @ 100 mls/hr 04/15/19 10:00 04/15/19 12:15 Levaquin 500 Mg Premixed Ivpb - IVPB 100 mls/hr DAILY NANCY Administration Protocol Vancomycin HCl 1,000 mg in 250 mls @ 166.667 mls/hr 04/15/19 01:00 04/15/19 15:25 Vancomycin (Pre-Docked) IVPB 166.667 mls/hr Q12H NANCY Administration Protocol Insulin Aspart 1 vial 04/14/19 22:00 04/15/19 18:49 Novolog Vial Sliding Scale - SQ 4 units ACHS NANCY Administration Protocol Ondansetron HCl 4 mg 04/14/19 18:21 Zofran Injection IVPUSH Q6H PRN NAUSEA AND/OR VOMITING Home Medications Medication Instructions Recorded Ondansetron HCl [Zofran] 4 mg PO Q8H #10 tablet 04/10/19 Microbiology 04/12/19 05:15 Blood - Peripheral Venous Blood Culture - Final Staphylococcus Epidermidis 04/13/19 21:00 Blood - Peripheral Venous Blood Culture - Preliminary Pending Organism 04/13/19 19:40 Urine - Urine Clean Catch Urine Culture - Final NO GROWTH OBTAINED 04/13/19 21:00 Blood - Peripheral Venous Blood Culture - Preliminary NO GROWTH OBTAINED AFTER 24 HOURS, INCUBATION TO CONTINUE FOR 4 DAYS. 04/12/19 04:50 Urine - Urine Clean Catch Urine Culture - Final Contaminated: Please Repeat 04/12/19 06:05 Blood - Peripheral Venous Blood Culture - Preliminary Staphylococcus Coagulase Neg MRCP result: Moderate right sided hydronephrosis with perinephric edema. Right lower renal pole stone seen. Findings are non specific, could be possible to obstructing stone. Obstructing ureteral or UVJ lesion or pyelonephritis. ASSESSMENT AND PLAN: 53 y/o M w/ PMHx recently diagnosed DM, presents with abd pain x 3 days #POD#1 s/p ureteral stent by dr Mack due to having right sided moderate hydronephrosis with perinephric hydronephrosis due to non-obstructing stone/ pylonephritis . on IV levaquin and IV vancmycin continue dsicussed with ID #GRAM POSITIVE BACTEREMIA ; repeat positive as well ;staph.coag neg x 2 ; On IV vancomycin , ID consult appreciated. #SANTIAGO due to non-obstructing stone with hydronephrosis ; Cr 1.9-->1.6-->1.4;;> 1.0 today # Acute hyponatremia: Na 129-->133-->135-->136 today continue ivf #DM on BGM, SSI, A1c pending DVT Px: scds #code full, med/surg echo is negative ,will repeat blood cx
[2019-04-16] MEDS: VANCOMYCIN 1 GRAM (PRE-DOCKED) 1,000 MG/250 ML BAG IVPB SCH ×2 (00:54→15:33)
[2019-04-16] MEDS: LACTATED RINGERS SOLUTION 1,000 ML IV SCH (00:54)
[2019-04-16] MEDS: INSULIN SLIDING SCALE (NOVOLOG) 1 VIAL SQ SCH ×4 (06:35→22:08)
[2019-04-16 07:46] LABS: HEMATOCRIT 32.7 % (35.4-49); MCH 30.6 pg (25.7-33.7); MCHC 33.6 g/dl (32.0-35.9); MEAN CELL VOLUME 91.2 fl (80-96); MEAN PLT VOLUME 8.8 fl (7.5-11.1); PLATELET COUNT 265 K/MM3 (134-434); RBC 3.59 M/mm3 (4.00-5.60); RDW 12.1 % (11.9-15.9); WHITE BLOOD COUNT 9.7 K/mm3 (4.0-10.0)
[2019-04-16 08:08] LABS: INR 1.16 (0.83-1.09); PROTHROMBIN TIME (PATIENT) 13.7 SEC (9.7-13.0)
[2019-04-16 08:41] LABS: ALBUMIN 2.6 g/dl (3.4-5.0); BLOOD UREA NITROGEN 14.6 mg/dL (7-18); CALCIUM 8.8 mg/dL (8.5-10.1); MAGNESIUM 1.8 mg/dL (1.8-2.4); PHOSPHOROUS 2.7 mg/dL (2.5-4.9); POTASSIUM 3.8 mmol/L (3.5-5.1); TOT PROT 6.4 g/dl (6.4-8.2)
--- NOTE | 2019-04-16 11:35 | ECHO ---
Name: HECTOR DODGE Exam:Adult Echocardiogram Study Date: 04/16/2019 07:30 AM Age: 53 yrs Reason For Study: r/o vegitation Height: 67 in Weight: 149 lb BSA: 1.8 m2 MMode/2D Measurements & Calculations IVSd: 0.91 cm Ao root diam: 3.5 cm LVIDd: 5.3 cm LA dimension: 3.7 cm LVIDs: 3.7 cm ACS: 1.9 cm LVPWd: 1.0 cm IVSs: 1.3 cm LVPWs: 1.4 cm EDV(Teich): 133.3 ml ESV(Teich): 56.9 ml Doppler Measurements & Calculations MV E max jeronimo: 87.1 cm/sec Ao V2 max: 108.6 cm/sec MV A max jeronimo: 67.9 cm/sec Ao max P.7 mmHg MV E/A: 1.3 MR max jeronimo: 515.8 cm/sec TR max jeronimo: 230.7 cm/sec MR max P.4 mmHg TR max P.3 mmHg Med Peak E' Jeronimo: 7.9 cm/sec Med E/e': 11.0 Lat Peak E' Jeronimo: 7.5 cm/sec Lat E/e': 11.7 Procedure A complete two-dimensional transthoracic echocardiogram was performed (2D, M-mode, Doppler and color flow Doppler). Left Ventricle The left ventricle is normal in size. Left ventricular systolic function is normal. Ejection Fraction = 55- 60%. No regional wall motion abnormalities noted. Right Ventricle The right ventricle is normal size. The right ventricular systolic function is normal. Atria The left atrial size is normal. Right atrial size is normal. Mitral Valve The mitral valve is normal in structure and function. There is no vegetation seen on the mitral valve . There is mild mitral regurgitation. Tricuspid Valve The tricuspid valve is normal in structure and function. There is no tricuspid valve vegetation. Ther e is mild tricuspid regurgitation. Aortic Valve The aortic valve is normal in structure and function. There is no aortic valvular vegetation. No aort ic regurgitation is present. Pulmonic Valve The pulmonic valve is not well visualized. There is no vegetation on the pulmonic valve. Mild pulmoni c valvular regurgitation. Great Vessels The aortic root is normal size. Pericardium/Pleura There is no pericardial effusion. Interpretation Summary The left ventricle is normal in size. Left ventricular systolic function is normal. No regional wall motion abnormalities noted. Ejection Fraction = 55-60%. The right ventricular systolic function is normal. The left atrial size is normal. Right atrial size is normal. There is mild mitral regurgitation. There is mild tricuspid regurgitation. Mild pulmonic valvular regurgitation. No evidence of valvular vegetations. Clinical correlation is recommended There is no pericardial effusion. Previous study is not available for comparison Chapo Garrido MD 04/16/2019 11:35 AM
[2019-04-16 14:40] VITALS: BMI 23.6
--- NOTE | 2019-04-16 15:25 | PN ---
Physical Exam: SUBJECTIVE: Patient seen and examined at bedside. No acute events overnight. OBJECTIVE: Vital Signs Period Temp Pulse Resp BP Sys/Monsivais Pulse Ox Last 24 Hr 98.0 F-98.9 F 66-87 18-20 135-150/79-88 GENERAL: NAD HEAD: Atraumatic/Normocephalic EYES:EOMI Sclera Clear ENT: MMM NECK: Trachea midline, full range of motion, supple. LUNGS: CTAB HEART: RRR S1S2 ABDOMEN: No CVA tendernes appreciated. NDNT EXTREMITIES: No CCE PSYCH: Normal mood, normal affect. SKIN: Warm, dry, normal turgor, no rashes or lesions noted Laboratory Results - last 24 hr 04/15/19 04/15/19 04/16/19 16:31 20:49 06:05 WBC RBC Hgb Hct MCV MCH MCHC RDW Plt Count MPV PT with INR INR Sodium Potassium Chloride Carbon Dioxide Anion Gap BUN Creatinine Est GFR (CKD-EPI)AfAm Est GFR (CKD-EPI)NonAf POC Glucometer 248 248 243 Random Glucose Calcium Phosphorus Magnesium Total Bilirubin AST ALT Alkaline Phosphatase Total Protein Albumin Random Vancomycin 04/16/19 04/16/19 04/16/19 07:36 07:36 07:36 WBC 9.7 RBC 3.59 L Hgb 11.0 L Hct 32.7 L MCV 91.2 MCH 30.6 MCHC 33.6 RDW 12.1 Plt Count 265 MPV 8.8 D PT with INR 13.70 H INR 1.16 H Sodium 138 Potassium 3.8 Chloride 102 Carbon Dioxide 31 Anion Gap 6 L BUN 14.6 Creatinine 1.0 Est GFR (CKD-EPI)AfAm 99.15 Est GFR (CKD-EPI)NonAf 85.55 POC Glucometer Random Glucose 209 H Calcium 8.8 Phosphorus 2.7 Magnesium 1.8 Total Bilirubin 1.0 AST 15 ALT 20 Alkaline Phosphatase 89 Total Protein 6.4 Albumin 2.6 L Random Vancomycin 04/16/19 04/16/19 12:18 13:54 WBC RBC Hgb Hct MCV MCH MCHC RDW Plt Count MPV PT with INR INR Sodium Potassium Chloride Carbon Dioxide Anion Gap BUN Creatinine Est GFR (CKD-EPI)AfAm Est GFR (CKD-EPI)NonAf POC Glucometer 225 Random Glucose Calcium Phosphorus Magnesium Total Bilirubin AST ALT Alkaline Phosphatase Total Protein Albumin Random Vancomycin 8.4 L Active Medications Generic Name Dose Route Start Last Admin Trade Name Freq PRN Reason Stop Dose Admin Acetaminophen 650 mg 04/14/19 18:21 Tylenol - PO Q6H PRN Fever Levofloxacin 500 mg in 100 mls @ 100 mls/hr 04/15/19 10:00 04/16/19 10:10 Levaquin 500 Mg Premixed Ivpb - IVPB 100 mls/hr DAILY NANCY Administration Protocol Vancomycin HCl 1,000 mg in 250 mls @ 166.667 mls/hr 04/15/19 01:00 04/16/19 00:54 Vancomycin (Pre-Docked) IVPB 166.667 mls/hr Q12H NANCY Administration Protocol Insulin Aspart 1 vial 04/14/19 22:00 04/16/19 13:34 Novolog Vial Sliding Scale - SQ 4 units ACHS NANCY Administration Protocol Ondansetron HCl 4 mg 04/14/19 18:21 Zofran Injection IVPUSH Q6H PRN NAUSEA AND/OR VOMITING ASSESSMENT/PLAN: 53 y/o M w/ PMHx recently diagnosed DM not on Tx, p/w abd pain x 3 days #abdominal pain 2/2 nephrolithiasis -significant pain/tenderness -lipase elevated but <3x ULN -s/p stent placement 04/14 -T bilirubin 1.4-->1.8 -oxycodone PRN for pain -avoid hepatotoxic medications -bcx prelim --> Staph Coagulase Neg. ID on board--> Vancomycin 1250 mg Daily via PICC Line #SANTIAGO vs CKD -baseline unknown -Cr 1.9-->1.0 (04/16/19) -Na 129-->133 -urology on board #DM -BGM, SSI -A1c 8.4% #FEN -No Fluids -monitor and correct lytes -Diabetic Diet #PPx -mechanical #code -full #dispo -med/surg Visit type - Emergency Visit Emergency Visit: Yes ED Registration Date: 04/11/19 Care time: The patient presented to the Emergency Department on the above date and was hospitalized for further evaluation of their emergent condition. - New Patient This patient is new to me today: No - Critical Care Critical Care patient: No - Discharge Referral Referred to [facility] No
--- NOTE | 2019-04-16 20:21 | OP ---
DATE OF OPERATION: 04/14/2019 PREOPERATIVE DIAGNOSIS: Right hydronephrosis and urinary tract infection. POSTOPERATIVE DIAGNOSIS: Right hydronephrosis and urinary tract infection. PROCEDURE: Cystoscopy and right ureteral stent placement. SURGEON: Barbara Parra MD INDICATIONS: Patient is a 53-year-old male who was admitted with right-sided abdominal pain. CT scan revealed right-sided hydronephrosis. The cause of the hydronephrosis was unclear; however, there were several nonobstructing stones in the right kidney. The patient was placed on IV antibiotics; however, has been having most recently low-grade temperatures and rising white blood cell count. Blood cultures showed staphylococcus and urine culture was contaminated. Without any other source of infection, I suspect that the urinary tract is the source and therefore the right hydronephrosis needs to be decompressed. This was reviewed with the patient in detail and he agreed to right ureteral stent placement with plan for diagnostic ureteroscopy at a later date once the infection has resolved. DESCRIPTION OF PROCEDURE: After informed consent was obtained, the patient was taken to the OR and placed supine on the operating table. After cardiac monitoring was established, general anesthesia was administered. He was prepped and draped in the dorsal lithotomy position. A 22-sheathed cystoscope was introduced without difficulty. The anterior urethra was normal. The posterior urethra had 3 cm of occlusion. The bladder was visualized. No tumor or stone was noted in the bladder. Attention was turned to the right ureteral orifice. It was intubated with a ureteral catheter. Contrast was injected for a retrograde pyelogram. There was hydronephrosis down to the level of the proximal ureter, at which point the ureter appeared to be a bit narrower at that point. Guidewire was advanced into the right renal pelvis and over the guidewire a 7-Maori 24-cm double-pigtail stent was then advanced in a monorail fashion. Fluoroscopy confirmed the stent to be in good position. The patient awoke from anesthesia and transferred to the recovery room in stable condition. There were no complications. Estimated blood loss was minimal. BARBARA PARRA M.D. [id number]
--- NOTE | 2019-04-16 21:48 | PN ---
Teaching Attending Note Name of Resident: Femi Noland ATTENDING PHYSICIAN STATEMENT I saw and evaluated the patient. I reviewed the resident's note and discussed the case with the resident. I agree with the resident's findings and plan as documented. SUBJECTIVE: Patient is feeling better , no fever or chills, no shortness of breath, no further pain. comfortable. OBJECTIVE: Vital Signs Temperature 98.1 F 04/16/19 18:00 Pulse Rate 82 04/16/19 18:00 Respiratory Rate 18 04/16/19 18:00 Blood Pressure 135/79 04/16/19 18:00 O2 Sat by Pulse Oximetry (%) 100 04/15/19 09:00 GENERAL: A&Ox3, NAD HEENT: NC/AT, PERRLA, EOMI, MMM NECK: Trachea midline, full range of motion, supple. LUNGS: CTA b/l, HEART: RRR no m/r/g ABDOMEN: soft, NT , reducible periumbilical hernia, EXTREMITIES: 2+ pulses, warm, well-perfused, no edema. 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 SKIN: Warm, dry, normal turgor, no rashes or lesions noted CBCD WBC 9.7 K/mm3 (4.0-10.0) 04/16/19 07:36 RBC 3.59 M/mm3 (4.00-5.60) L 04/16/19 07:36 Hgb 11.0 GM/dL (11.7-16.9) L 04/16/19 07:36 Hct 32.7 % (35.4-49) L 04/16/19 07:36 MCV 91.2 fl (80-96) 04/16/19 07:36 MCHC 33.6 g/dl (32.0-35.9) 04/16/19 07:36 RDW 12.1 % (11.9-15.9) 04/16/19 07:36 Plt Count 265 K/MM3 (134-434) 04/16/19 07:36 MPV 8.8 fl (7.5-11.1) D 04/16/19 07:36 CMP Sodium 138 mmol/L (136-145) 04/16/19 07:36 Potassium 3.8 mmol/L (3.5-5.1) 04/16/19 07:36 Chloride 102 mmol/L (98-107) 04/16/19 07:36 Carbon Dioxide 31 mmol/L (21-32) 04/16/19 07:36 Anion Gap 6 MMOL/L (8-16) L 04/16/19 07:36 BUN 14.6 mg/dL (7-18) 04/16/19 07:36 Creatinine 1.0 mg/dL (0.55-1.3) 04/16/19 07:36 Random Glucose 209 mg/dL (74-106) H 04/16/19 07:36 Calcium 8.8 mg/dL (8.5-10.1) 04/16/19 07:36 Total Bilirubin 1.0 mg/dL (0.2-1) 04/16/19 07:36 AST 15 U/L (15-37) 04/16/19 07:36 ALT 20 U/L (13-61) 04/16/19 07:36 Alkaline Phosphatase 89 U/L (45-117) 04/16/19 07:36 Total Protein 6.4 g/dl (6.4-8.2) 04/16/19 07:36 Albumin 2.6 g/dl (3.4-5.0) L 04/16/19 07:36 Current Medications Generic Name Dose Route Start Last Admin Trade Name Freq PRN Reason Stop Dose Admin Acetaminophen 650 mg 04/14/19 18:21 Tylenol - PO Q6H PRN Fever Levofloxacin 500 mg in 100 mls @ 100 mls/hr 04/15/19 10:00 04/16/19 10:10 Levaquin 500 Mg Premixed Ivpb - IVPB 100 mls/hr DAILY NANCY Administration Protocol Vancomycin HCl 1,000 mg in 250 mls @ 166.667 mls/hr 04/15/19 01:00 04/16/19 15:33 Vancomycin (Pre-Docked) IVPB 166.667 mls/hr Q12H NANCY Administration Protocol Insulin Aspart 1 vial 04/14/19 22:00 04/16/19 18:53 Novolog Vial Sliding Scale - SQ 6 units ACHS NANCY Administration Protocol Ondansetron HCl 4 mg 04/14/19 18:21 Zofran Injection IVPUSH Q6H PRN NAUSEA AND/OR VOMITING Home Medications Medication Instructions Recorded Ondansetron HCl [Zofran] 4 mg PO Q8H #10 tablet 04/10/19 Microbiology 04/13/19 21:00 Blood - Peripheral Venous Blood Culture - Final Staphylococcus Epidermidis 04/13/19 21:00 Blood - Peripheral Venous Blood Culture - Preliminary NO GROWTH OBTAINED AFTER 72 HOURS, INCUBATION TO CONTINUE FOR 2 DAYS. 04/12/19 05:15 Blood - Peripheral Venous Blood Culture - Final Staphylococcus Epidermidis 04/13/19 19:40 Urine - Urine Clean Catch Urine Culture - Final NO GROWTH OBTAINED 04/12/19 04:50 Urine - Urine Clean Catch Urine Culture - Final Contaminated: Please Repeat 04/12/19 06:05 Blood - Peripheral Venous Blood Culture - Preliminary Staphylococcus Coagulase Neg MRCP result: Moderate right sided hydronephrosis with perinephric edema. Right lower renal pole stone seen. Findings are non specific, could be possible to obstructing stone. Obstructing ureteral or UVJ lesion or pyelonephritis. ASSESSMENT AND PLAN: 53 y/o M w/ PMHx recently diagnosed DM, presents with abd pain x 3 days #POD#2 s/p ureteral stent by dr Mack due to having right sided moderate hydronephrosis with perinephric hydronephrosis due to non-obstructing stone . on IV levaquin and IV vancmycin continue dsicussed with ID #GRAM POSITIVE BACTEREMIA ; repeat positive as well , continues to be positive ; staph.coag neg x 2 ; On IV vancomycin , ID consult appreciated. #SANTIAGO due to non-obstructing stone with hydronephrosis ; Cr 1.9-->1.6-->1.4--> 1.0 today # Acute hyponatremia: Na 129-->133-->135-->136-->138 today continue ivf, patient is improving #DM on BGM, SSI, A1c pending DVT Px: scds #code full, med/surg echo is negative ,will repeat blood cx
[2019-04-17] MEDS: VANCOMYCIN 1 GRAM (PRE-DOCKED) 1,000 MG/250 ML BAG IVPB SCH ×2 (00:47→15:10)
[2019-04-17] MEDS: INSULIN SLIDING SCALE (NOVOLOG) 1 VIAL SQ SCH ×3 (06:25→17:40)
[2019-04-17 08:33] LABS: HEMATOCRIT 31.8 % (35.4-49); HEMOGLOBIN 10.6 GM/dL (11.7-16.9); MCH 30.7 pg (25.7-33.7); MCHC 33.4 g/dl (32.0-35.9); MEAN CELL VOLUME 91.8 fl (80-96); MEAN PLT VOLUME 9.1 fl (7.5-11.1); RBC 3.47 M/mm3 (4.00-5.60); RDW 11.9 % (11.9-15.9); WHITE BLOOD COUNT 8.4 K/mm3 (4.0-10.0)
[2019-04-17 08:49] LABS: BLOOD UREA NITROGEN 13.8 mg/dL (7-18); MAGNESIUM 1.5 mg/dL (1.8-2.4); PHOSPHOROUS 3.7 mg/dL (2.5-4.9); POTASSIUM 3.8 mmol/L (3.5-5.1)
--- NOTE | 2019-04-17 09:01 | PN ---
Progress Note (short form) - Note Progress Note: afebrile rt sided abdominal pain resolved with stent placement no dysuria/hematuria no CVAT Rt ureteral stricture Rt Kidney stone stable from standpoint outpt f/u Problem List - Problems (1) Hydronephrosis Code(s): N13.30 - UNSPECIFIED HYDRONEPHROSIS Qualifiers: Hydronephrosis type: unspecified Qualified Code(s): N13.30 - Unspecified hydronephrosis
[2019-04-17 09:10] LABS: PLATELET COUNT 291 K/MM3 (134-434)
--- NOTE | 2019-04-17 09:26 | PN ---
Teaching Attending Note Name of Resident: Femi Noland ATTENDING PHYSICIAN STATEMENT I saw and evaluated the patient. I reviewed the resident's note and discussed the case with the resident. I agree with the resident's findings and plan as documented. SUBJECTIVE: OBJECTIVE: Vital Signs Temperature 98.7 F 04/17/19 02:00 Pulse Rate 78 04/17/19 02:00 Respiratory Rate 18 04/17/19 02:00 Blood Pressure 135/78 04/17/19 02:00 O2 Sat by Pulse Oximetry (%) 100 04/15/19 09:00 GENERAL: A&Ox3, NAD HEENT: NC/AT, PERRLA, EOMI, MMM NECK: Trachea midline, full range of motion, supple. LUNGS: CTA b/l, HEART: RRR no m/r/g ABDOMEN: soft, mild distention with tenderness , reducible periumbilical hernia , EXTREMITIES: 2+ pulses, warm, well-perfused, no edema. 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 SKIN: Warm, dry, normal turgor, no rashes or lesions noted CBCD WBC 8.4 K/mm3 (4.0-10.0) 04/17/19 08:02 RBC 3.47 M/mm3 (4.00-5.60) L 04/17/19 08:02 Hgb 10.6 GM/dL (11.7-16.9) L 04/17/19 08:02 Hct 31.8 % (35.4-49) L 04/17/19 08:02 MCV 91.8 fl (80-96) 04/17/19 08:02 MCHC 33.4 g/dl (32.0-35.9) 04/17/19 08:02 RDW 11.9 % (11.9-15.9) 04/17/19 08:02 Plt Count 291 K/MM3 (134-434) 04/17/19 08:02 MPV 9.1 fl (7.5-11.1) 04/17/19 08:02 CMP Sodium 139 mmol/L (136-145) 04/17/19 08:02 Potassium 3.8 mmol/L (3.5-5.1) 04/17/19 08:02 Chloride 103 mmol/L (98-107) 04/17/19 08:02 Carbon Dioxide 30 mmol/L (21-32) 04/17/19 08:02 Anion Gap 7 MMOL/L (8-16) L 04/17/19 08:02 BUN 13.8 mg/dL (7-18) 04/17/19 08:02 Creatinine 1.0 mg/dL (0.55-1.3) 04/17/19 08:02 Random Glucose 188 mg/dL (74-106) H 04/17/19 08:02 Calcium 9.0 mg/dL (8.5-10.1) 04/17/19 08:02 Total Bilirubin 1.0 mg/dL (0.2-1) 04/16/19 07:36 AST 15 U/L (15-37) 04/16/19 07:36 ALT 20 U/L (13-61) 04/16/19 07:36 Alkaline Phosphatase 89 U/L (45-117) 04/16/19 07:36 Total Protein 6.4 g/dl (6.4-8.2) 04/16/19 07:36 Albumin 2.6 g/dl (3.4-5.0) L 04/16/19 07:36 Current Medications Generic Name Dose Route Start Last Admin Trade Name Freq PRN Reason Stop Dose Admin Acetaminophen 650 mg 04/14/19 18:21 Tylenol - PO Q6H PRN Fever Levofloxacin 500 mg in 100 mls @ 100 mls/hr 04/15/19 10:00 04/16/19 10:10 Levaquin 500 Mg Premixed Ivpb - IVPB 100 mls/hr DAILY NANCY Administration Protocol Vancomycin HCl 1,000 mg in 250 mls @ 166.667 mls/hr 04/15/19 01:00 04/17/19 00:47 Vancomycin (Pre-Docked) IVPB 166.667 mls/hr Q12H NANCY Administration Protocol Insulin Aspart 1 vial 04/14/19 22:00 04/17/19 06:25 Novolog Vial Sliding Scale - SQ 2 units ACHS NANCY Administration Protocol Ondansetron HCl 4 mg 04/14/19 18:21 Zofran Injection IVPUSH Q6H PRN NAUSEA AND/OR VOMITING Home Medications Medication Instructions Recorded Ondansetron HCl [Zofran] 4 mg PO Q8H #10 tablet 04/10/19 MRCP result: Moderate right sided hydronephrosis with perinephric edema. Right lower renal pole stone seen. Findings are non specific, could be possible to obstructing stone. Obstructing ureteral or UVJ lesion or pyelonephritis. ASSESSMENT AND PLAN: 53 y/o M w/ PMHx recently diagnosed DM, presents with abd pain x 3 days #Right sided moderate hydronephrosis with perinephric hydronephrosis due to non- obstructing stone/ pylonephritis . nephro consult appreciated. on IV flagyl and levaquin.Dr. Law will take the patient to OR for stent placement. # Blood growing staph.coag neg x 2 ; On IV vancomycin , ID consult appreciated. #SANTIAGO due to non-obstructing stone with hydronephrosis ; Cr 1.9-->1.6-->1.4 # Acute hyponatremia: Na 129-->133-->135 on ivf #DM on BGM, SSI, A1c pending DVT Px:mechanical #code full, med/surg echo pending, repeat blood cx
[2019-04-17] MEDS ORDERED: MAGNESIUM SULF 50% (8.12 MEQ/2 ML-1 GM VIAL) IVPB ONE (09:31)
--- NOTE | 2019-04-17 13:39 | DS ---
Physical Exam: SUBJECTIVE: Patient seen and examined at bedside. No acute events overnight. OBJECTIVE: Vital Signs Period Temp Pulse Resp BP Sys/Monsivais Pulse Ox Last 24 Hr 98.1 F-98.8 F 75-87 18-18 135-150/78-87 96 PHYSICAL EXAM GENERAL: No acute distress HEAD: Atraumatic/Normocephalic EYES:EOMI Sclera Clear ENT: MMM NECK: Trachea midline, full range of motion, supple. LUNGS: CTAB HEART: RRR S1S2 ABDOMEN: No CVA tendernes appreciated. NDNT EXTREMITIES: No CCE PSYCH: Normal mood, normal affect. SKIN: Warm, dry, normal turgor, no rashes or lesions noted LABS Laboratory Results - last 24 hr 04/16/19 04/16/19 04/16/19 13:54 17:24 22:06 WBC RBC Hgb Hct MCV MCH MCHC RDW Plt Count MPV Sodium Potassium Chloride Carbon Dioxide Anion Gap BUN Creatinine Est GFR (CKD-EPI)AfAm Est GFR (CKD-EPI)NonAf POC Glucometer 270 246 Random Glucose Calcium Phosphorus Magnesium Random Vancomycin 8.4 L 04/17/19 04/17/19 04/17/19 05:38 08:02 08:02 WBC 8.4 RBC 3.47 L Hgb 10.6 L Hct 31.8 L MCV 91.8 MCH 30.7 MCHC 33.4 RDW 11.9 Plt Count 291 MPV 9.1 Sodium 139 Potassium 3.8 Chloride 103 Carbon Dioxide 30 Anion Gap 7 L BUN 13.8 Creatinine 1.0 Est GFR (CKD-EPI)AfAm 99.15 Est GFR (CKD-EPI)NonAf 85.55 POC Glucometer 198 Random Glucose 188 H Calcium 9.0 Phosphorus 3.7 Magnesium 1.5 L Random Vancomycin 04/17/19 13:26 WBC RBC Hgb Hct MCV MCH MCHC RDW Plt Count MPV Sodium Potassium Chloride Carbon Dioxide Anion Gap BUN Creatinine Est GFR (CKD-EPI)AfAm Est GFR (CKD-EPI)NonAf POC Glucometer 218 Random Glucose Calcium Phosphorus Magnesium Random Vancomycin HOSPITAL COURSE: Date of Admission:04/11/19 53 y/o M w/ PMHx of recently diagnosed DM not on Tx, presented to [facility] w/ abd pain x 3 days. Pt underwent CTAP which revealed " right hydronephrosis. no definite obstructing calculus is seen. " Lipase was elevated at 827. Pt underwent an MRCP---> " Moderate right sided hydronephrosis with perinephric edema. Right lower renal pole stone seen. Findings are non specific, could be possible to obstructing stone. Obstructing ureteral or UVJ lesion or pyelonephritis. " Pt was evaluated by urology and subsequently underwent a cysto /retrograde/rt ureteral stent. Bcx prelim --> Staph Coagulase Neg; blood culture final report revealed staph epiderm. Levaquin and vancomycin were empirically started per I.D. WBC count initially was 8.4 however went up to 13.3. T bili was 1.4 on admission and peaked to 2.0. Creatinine was 1.9 on admission; pt was placed on IVF and Cr dropped down to normal limits. Pt also was noted to have hyponatremia at 129 which was corrected with IVF. A1C was 8.4 % (pt discharged with Metformin). Furthermore, pt underwent a PICC line and was discharged home with a prescription to take Vancomycin 1250 Daily for a total of 2 weeks. Date of Discharge: 04/17/19 Minutes to complete discharge: 35 Discharge Summary Reason For Visit: ACUTE KIDNEY INJURY HYDRONEPHROSIS Current Active Problems SANTIAGO (acute kidney injury) (Acute) Abdominal pain in male (Acute) Hydronephrosis (Acute) Condition: Improved - Instructions Diet, Activity, Other Instructions: You presented to the hospital due to abdominal pain. You were found to have water around the kidney as well as a kidney stone in your right kidney. You underwent a procedure with the Urologist- Dr Portillo for this. Please take the following antibiotic as prescribed: VANCOMYCIN 1250 daily for 2 weeks. Please follow up with the infectious disease specialist Dr Franks in 1 week. Please follow up with the urologist this week-Dr Portillo. You will need to have your blood drawn in 1 week. A CBC and CMP. Please follow up with your primary doctor in 1 week for this. We have started you on a new medication for your diabetes called Metformin. Please take this medication TWICE per day 500 mg. Please follow up with your primary care doctor this week. If you do not have a primary care doctor, you may follow up with our clinic. A referral has been provided for you in your discharge papers. Referrals: [facility] [place] [Provider Group] - 1 Week Lucas Franks MD [Staff Physician] - 1 Week Jay Tang MD [Staff Physician] - 2 Weeks Sheron Moses MD [Staff Physician] - Disposition: HOME - Home Medications Comprehensive Discharge Medication List: Ambulatory Orders Vancomycin HCl in Water [Vancomycin 1,250 mg/12.5 ml Vl] 1.25 gm IV DAILY #12 vial 04/17/19 This patient is new to me today: No Emergency Visit: Yes ED Registration Date: 04/11/19 Care time: The patient presented to the Emergency Department on the above date and was hospitalized for further evaluation of their emergent condition. Critical Care patient: No - Discharge Referral [facility]erred to [facility] No
--- NOTE | 2019-04-17 14:30 | PN ---
Teaching Attending Note Name of Resident: Femi Noland ATTENDING PHYSICIAN STATEMENT I saw and evaluated the patient. I reviewed the resident's note and discussed the case with the resident. I agree with the resident's findings and plan as documented. SUBJECTIVE: Patient is comfortable wit no acute distress. no fever or chills, no further abdominal or cva tenderness. OBJECTIVE: Vital Signs Temperature 98.8 F 04/17/19 10:00 Pulse Rate 75 04/17/19 10:00 Respiratory Rate 18 04/17/19 10:00 Blood Pressure 144/87 04/17/19 10:00 O2 Sat by Pulse Oximetry (%) 96 04/17/19 09:00 GENERAL: A&Ox3, NAD HEENT: NC/AT, PERRLA, EOMI, MMM NECK: Trachea midline, full range of motion, supple. LUNGS: CTA b/l, HEART: RRR no m/r/g ABDOMEN: soft, NT, ND, reducible periumbilical hernia, EXTREMITIES: 2+ pulses, warm, well-perfused, no edema. 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 SKIN: Warm, dry, normal turgor, no rashes or lesions noted CBCD WBC 8.4 K/mm3 (4.0-10.0) 04/17/19 08:02 RBC 3.47 M/mm3 (4.00-5.60) L 04/17/19 08:02 Hgb 10.6 GM/dL (11.7-16.9) L 04/17/19 08:02 Hct 31.8 % (35.4-49) L 04/17/19 08:02 MCV 91.8 fl (80-96) 04/17/19 08:02 MCHC 33.4 g/dl (32.0-35.9) 04/17/19 08:02 RDW 11.9 % (11.9-15.9) 04/17/19 08:02 Plt Count 291 K/MM3 (134-434) 04/17/19 08:02 MPV 9.1 fl (7.5-11.1) 04/17/19 08:02 CMP Sodium 139 mmol/L (136-145) 04/17/19 08:02 Potassium 3.8 mmol/L (3.5-5.1) 04/17/19 08:02 Chloride 103 mmol/L (98-107) 04/17/19 08:02 Carbon Dioxide 30 mmol/L (21-32) 04/17/19 08:02 Anion Gap 7 MMOL/L (8-16) L 04/17/19 08:02 BUN 13.8 mg/dL (7-18) 04/17/19 08:02 Creatinine 1.0 mg/dL (0.55-1.3) 04/17/19 08:02 Random Glucose 188 mg/dL (74-106) H 04/17/19 08:02 Calcium 9.0 mg/dL (8.5-10.1) 04/17/19 08:02 Total Bilirubin 1.0 mg/dL (0.2-1) 04/16/19 07:36 AST 15 U/L (15-37) 04/16/19 07:36 ALT 20 U/L (13-61) 04/16/19 07:36 Alkaline Phosphatase 89 U/L (45-117) 04/16/19 07:36 Total Protein 6.4 g/dl (6.4-8.2) 04/16/19 07:36 Albumin 2.6 g/dl (3.4-5.0) L 04/16/19 07:36 Current Medications Generic Name Dose Route Start Last Admin Trade Name Freq PRN Reason Stop Dose Admin Acetaminophen 650 mg 04/14/19 18:21 Tylenol - PO Q6H PRN Fever Levofloxacin 500 mg in 100 mls @ 100 mls/hr 04/15/19 10:00 04/17/19 13:44 Levaquin 500 Mg Premixed Ivpb - IVPB 100 mls/hr DAILY NANCY Administration Protocol Vancomycin HCl 1,000 mg in 250 mls @ 166.667 mls/hr 04/15/19 01:00 04/17/19 00:47 Vancomycin (Pre-Docked) IVPB 166.667 mls/hr Q12H NANCY Administration Protocol Insulin Aspart 1 vial 04/14/19 22:00 04/17/19 13:44 Novolog Vial Sliding Scale - SQ 4 units ACHS NANCY Administration Protocol Ondansetron HCl 4 mg 04/14/19 18:21 Zofran Injection IVPUSH Q6H PRN NAUSEA AND/OR VOMITING Home Medications Medication Instructions Recorded Vancomycin HCl in Water 1.25 gm IV DAILY #12 vial 04/17/19 [Vancomycin 1,250 mg/12.5 ml Vl] Microbiology 04/13/19 21:00 Blood - Peripheral Venous Blood Culture - Final Staphylococcus Epidermidis 04/13/19 21:00 Blood - Peripheral Venous Blood Culture - Preliminary NO GROWTH OBTAINED AFTER 72 HOURS, INCUBATION TO CONTINUE FOR 2 DAYS. 04/12/19 05:15 Blood - Peripheral Venous Blood Culture - Final Staphylococcus Epidermidis 04/13/19 19:40 Urine - Urine Clean Catch Urine Culture - Final NO GROWTH OBTAINED 04/12/19 04:50 Urine - Urine Clean Catch Urine Culture - Final Contaminated: Please Repeat 04/12/19 06:05 Blood - Peripheral Venous Blood Culture - Preliminary Staphylococcus Coagulase Neg MRCP result: Moderate right sided hydronephrosis with perinephric edema. Right lower renal pole stone seen. Findings are non specific, could be possible to obstructing stone. Obstructing ureteral or UVJ lesion or pyelonephritis. ASSESSMENT AND PLAN: 53 y/o M w/ PMHx recently diagnosed DM, presents with abd pain x 3 days #POD#4 s/p ureteral stent by dr Mack due to having right sided moderate hydronephrosis with perinephric hydronephrosis due to non-obstructing stone . follow with Dr. Mack within a week #GRAM POSITIVE BACTEREMIA ; repeat positive staph.coag neg x 2 ; On IV vancomycin as per ID to continue with 1.25gm IV vancomycin x 2 weeks as p er . Follow with him in 2 weeks, repeat Cbc, cmp in a week. #SANTIAGO due to non-obstructing stone with hydronephrosis ; Cr 1.9-->1.6-->1.4--> 1.0 improved # Acute hyponatremia: Na 129-->133-->135-->136-->138-->139 today continue ivf, patient is improving #DM hemoglobin A1c 8.4 , will send the patient home on Metformin 500mg po bid echo is negative
--- NOTE | 2019-04-17 15:03 | PN ---
Progress Note, Physician History of Present Illness: AWAKE, ALERT IN BED NO C/O ABDOMINAL PAIN NO C/O DYSURIA/ HEMATURIA NO F/C REPEAT BC PENDING - Current Medication List Current Medications: Active Medications Acetaminophen (Tylenol -) 650 mg PO Q6H PRN PRN Reason: Fever Levofloxacin (Levaquin 500 Mg Premixed Ivpb -) 500 mg in 100 mls @ 100 mls/hr IVPB DAILY NANCY; Protocol Last Admin: 04/17/19 13:44 Dose: 100 mls/hr Vancomycin HCl (Vancomycin (Pre-Docked)) 1,000 mg in 250 mls @ 166.667 mls/hr IVPB Q12H NANCY; Protocol Last Admin: 04/17/19 00:47 Dose: 166.667 mls/hr Insulin Aspart (Novolog Vial Sliding Scale -) 1 vial SQ ACHS NANCY; Protocol Last Admin: 04/17/19 13:44 Dose: 4 units Ondansetron HCl (Zofran Injection) 4 mg IVPUSH Q6H PRN PRN Reason: NAUSEA AND/OR VOMITING - Objective Vital Signs: Vital Signs Temperature 98.8 F 04/17/19 10:00 Pulse Rate 75 04/17/19 10:00 Respiratory Rate 18 04/17/19 10:00 Blood Pressure 144/87 04/17/19 10:00 O2 Sat by Pulse Oximetry (%) 96 04/17/19 09:00 Constitutional: Yes: No Distress Eyes: Yes: Conjunctiva Clear Cardiovascular: Yes: Regular Rate and Rhythm, S1, S2 Respiratory: Yes: CTA Bilaterally Gastrointestinal: Yes: Normal Bowel Sounds, Soft. No: Tenderness Genitourinary: No: CVA Tenderness - Left, CVA Tenderness - Right Peripheral Pulses WNL: No Labs: CBC, BMP 04/17/19 08:02 04/17/19 08:02 INR, PTT INR 1.16 (0.83-1.09) H 04/16/19 07:36 Fibrinogen > 500.0 mg/dL (238-498) H 04/13/19 07:05 Assessment/Plan S/P CYSTO/ URETERAL STENT SCN BACTEREMIA NEPHROLITHIASIS FEVER/ LEUKOCYTOSIS RESOLVED REPEAT BC OBTAINED PICC FOR OUTPATIENT VANCOMYCIN X 2W
--- NOTE | 2019-04-17 16:54 | PN.GI ---
GI Progress Note Subjective: No abdominal pain S/P ureteral stent - Objective Vital Signs: Vital Signs Temperature 99.1 F 04/17/19 14:00 Pulse Rate 79 04/17/19 14:00 Respiratory Rate 18 04/17/19 14:00 Blood Pressure 139/82 04/17/19 14:00 O2 Sat by Pulse Oximetry (%) 96 04/17/19 09:00 Constitutional: Calm Eyes: No: Sclera Icterus Cardiovascular: Yes: Regular Rate and Rhythm Respiratory: Yes: CTA Bilaterally Gastrointestinal Inspection: No: Distention ...Auscultate: Yes: Normoactive Bowel Sounds ...Palpate: Yes: Soft. No: Tenderness Edema: No (No LE edema) Neurological: Yes: Alert Labs: CBC, BMP 04/17/19 08:02 04/17/19 08:02 INR, PTT INR 1.16 (0.83-1.09) H 04/16/19 07:36 Fibrinogen > 500.0 mg/dL (238-498) H 04/13/19 07:05 Hepatic Panel Total Bilirubin 1.0 mg/dL (0.2-1) 04/16/19 07:36 Direct Bilirubin 0.5 mg/dL (0.0-0.2) H 04/13/19 07:05 AST 15 U/L (15-37) 04/16/19 07:36 ALT 20 U/L (13-61) 04/16/19 07:36 Alkaline Phosphatase 89 U/L (45-117) 04/16/19 07:36 Albumin 2.6 g/dl (3.4-5.0) L 04/16/19 07:36 Problem List - Problems (1) Abdominal pain in male Assessment/Plan: S/P Right ureteral stent No focal GI issues at this time Gave Mr. Amezcua my card to discuss colonoscopy when acute issues are resolved Will sign off for now. Recall as needed Code(s): R10.9 - UNSPECIFIED ABDOMINAL PAIN
[2019-04-17 19:05] VITALS: BP 140/90; PULSE 73; TEMP 98.8
== END 2019-04-17 19:31 | disposition home or self-care (01) | DRG 660 ==
LOC: JER 13:27 → JERBED 20:22 → J5S 04-12 03:06
PROVIDERS: ADMIT Internal Medicine; ATTEND Internal Medicine
PROC: 0T768DZ Dilation of Right Ureter with Intraluminal Device, Via Natural or Artificial Opening Endoscopic (ICD-10-PCS; principal; 2019-04-14 17:57)
PROC: BT1DYZZ Fluoroscopy of Right Kidney, Ureter and Bladder using Other Contrast (ICD-10-PCS; 2019-04-14 17:57)
PROC: 02HV33Z Insertion of Infusion Device into Superior Vena Cava, Percutaneous Approach (ICD-10-PCS; 2019-04-17)
PROC: B518ZZA Fluoroscopy of Superior Vena Cava, Guidance (ICD-10-PCS; 2019-04-17)
DX: N13.39 Other hydronephrosis (principal); E87.1 Hypo-osmolality and hyponatremia; N20.0 Calculus of kidney; N17.9 Acute kidney failure, unspecified; E11.65 Type 2 diabetes mellitus with hyperglycemia; E11.22 Type 2 diabetes mellitus with diabetic chronic kidney disease; N18.9 Chronic kidney disease, unspecified; N39.0 Urinary tract infection, site not specified
CPT/HCPCS: 36415; 36569; 74019-TC-FY; 74176-TC; 74181-TC; 75820-TC-FY; 76000-TC-FY; 76705-TC; 77001-TC-FY; 80048; 80053; 80074; 80076; 80307; 81003; 82248; 82272; 82962; 83010; 83036; 83605; 83615; 83690; 83735; 84100; 84478; 85025; 85027; 85044; 85384; 85610; 85730; 87040; 87086; 87186; 87389; 93005; 93010; 93306-TC; 94760; 99284-25; C1751; G0480; J0131; J7030